=== PATIENT | female | born 1995 | race Caucasian/White ===

== ENCOUNTER 2020-04-17 10:24 | Outpatient (CLI) | payer OTHER, SELFPAY ==
--- NOTE | 2020-04-18 12:38 | WPDNEUROLOGY ---
Neurology EEG Report General Information Date of Study: 94 TEST EEG DIAGNOSIS tonic clonic seizures CONDITION OF RECORDING awake and drowsy EEG NUMBER [id number] CLINICAL HISTORY patient reported about 2 weeks ago she loss consciousness and was told she had a grand mal seizure no previous history of seizures but has lost consciousness a few times in the past EEG DESCRIPTION basic resting occipital frequency consist of moderate amount of well organized low to medium voltage 9 to 11 hertz per 2nd alpha admixed with low-voltage 15 to 18 hertz per 2nd beta activity. During drowsiness low-voltage beta activity is seen diffusely admixed with waxing and waning posterior alpha rhythm as well as 6 to 7 hertz per 2nd theta activity anteriorly. Non paroxysmal, nonfocal, nonlateralizing, IMPRESSION no significant abnormalities noted
== END 2020-04-17 10:25 | disposition home or self-care (01) ==
PROVIDERS: PCP Physician Assistant; Visit Provider Physician Assistant
DX: G40.309 Generalized idiopathic epilepsy and epileptic syndromes, not intractable, without status epilepticus (principal)
CPT/HCPCS: 95816

== ENCOUNTER 2020-06-13 14:19 | Emergency (ER) | payer OTHER, SELFPAY ==
[2020-06-13 14:24] VITALS: BP 118/67; PULSE 68; RESP 16; TEMP 36.3; O2SAT 100
--- NOTE | 2020-06-13 14:25 | ED.GENADULT ---
HPI - General Adult General Chief complaint: Ear Stated complaint: earache Time Seen by Provider: 06/13/20 14:25 Source: patient Mode of arrival: ambulatory Limitations: no limitations History of Present Illness HPI narrative: 25-year-old female patient presents to the [facility] with complaints of bilateral ear pain but more so to the right ear than the left. Patient states she has been dealing with this since beginning may. Patient states that the beginning of May she was given Augmentin but states that she felt like it never really truly cleared up and now has been giving her increasing pain for the past week. Patient denies any fevers, body aches or chills. Patient denies taking a daily antihistamine. Patient states that she has been dealing with frequent ear infections ever since she was when her eardrum busted. Patient states she is supposed to be getting a referral for an ENT doctor from her primary. Related Data Allergies Allergy/AdvReac Type Severity Reaction Status Date / Time sulfamethoxazole Allergy Severe Hives / Verified 06/13/20 14:24 Red Face trimethoprim Allergy Severe Hives / Verified 06/13/20 14:24 Red Face Review of Systems Review of Systems: Narrative: CONSTITUTIONAL: Denies fever, chills, or sweats. EYES: Denies visual changes, redness, or discharge. ENT: Denies rhinorrhea, congestion, sore throat, positive bilateral otalgia. CARDIOVASCULAR: Denies chest pain, palpitations, or edema. RESPIRATORY: Denies cough or dyspnea. GASTROINTESTINAL: Denies abdominal pain, nausea, vomiting, or diarrhea. GENITOURINARY: Denies dysuria or hematuria. SKIN: Denies rash or itching. MUSCULOSKELETAL: Denies back pain, joint pain, or myalgia. NEUROLOGIC: Denies headache, numbness, or weakness. PSYCHIATRIC: Denies anxiety or depression. [facility] Past Medical History Medical History (Updated 06/13/20 @ 14:37 by DAINA Shah) Anxiety Crohn's disease Depression Eardrum rupture, right Oligohydramnios Surgical History Surgical History (Updated 06/13/20 @ 14:27 by DAINA Shah) Delivery by section Hx of appendectomy Hx of cholecystectomy Hx of tonsillectomy Comments At the time of my signature I agree with nursing past medical history, surgical, social, and family history. There is no relevant family history pertinent to the presenting complaint. Exam Narrative: Exam Narrative: GENERAL: Well-appearing, well-nourished, and in no acute distress. HEAD: Normocephalic, atraumatic. EYES: PERRLA and EOMI. ENT: Nares clear, no rhinorrhea or epistaxis. Mucous membranes moist. Posterior pharynx no erythema, tonsil enlargement, exudates or lesions present. Bilateral TMs with erythema noted. NECK: Supple. No lymphadenopathy CHEST: Clear to auscultation. No respiratory distress. HEART: Regular rate and rhythm. No murmur heard. Normal peripheral pulses. ABDOMEN: Soft, nontender, nondistended, normal active bowel sounds. EXTREMITIES: Normal range of motion. No edema. SKIN: Warm, dry, no rash. NEURO: No focal deficits. Alert and oriented x3. Course Vital Signs Vital signs: Vital Signs Temperature 36.3 C L 06/13/20 14:24 Pulse Rate 68 06/13/20 14:24 Respiratory Rate 16 06/13/20 14:24 Blood Pressure 118/67 06/13/20 14:24 Pulse Oximetry 100 06/13/20 14:24 Temperature 36.3 C L 06/13/20 14:24 Pulse Rate 68 06/13/20 14:24 Respiratory Rate 16 06/13/20 14:24 Blood Pressure 118/67 06/13/20 14:24 Pulse Oximetry 100 06/13/20 14:24 Vital signs reviewed Medical Decision Making Differential Diagnosis Differential Diagnosis: Differential diagnosis: Otitis media, otitis externa, perforated TM, infection of the outer ear, foreign body or cerumen impaction, ruptured TM, acute mastoiditis, ligament otitis externa, dehydration, pneumonia, sepsis, dental or intraoral infection, TMJ dysfunction Discussed with patient that it does appear that she has
== END 2020-06-13 14:40 | disposition home or self-care (01) ==
PROVIDERS: Emergency Provider Nurse Practitioner Family; PCP Physician Assistant
DX: H66.93 Otitis media, unspecified, bilateral (principal); K50.90 Crohn's disease, unspecified, without complications
CPT/HCPCS: 99213; G0463

== ENCOUNTER 2022-02-12 10:42 | Outpatient (RCR) | payer OTHER, SELFPAY ==
[2022-02-12 12:09] LABS: Basophils Percent Auto 0.2 % (0.2-1.2); Eosinophils Absolute Auto 0.1 K/mm3 (0-0.3); Eosinophils Percent Auto 0.5 % (0-4.4); Hematocrit 28.2 % (37.0-47.0); Hemoglobin 8.8 g/dL (12.0-15.0); Immature Granulocyte Absolute 0.08 K/mm3 (0.00-0.031); Immature Granulocyte Percent A 0.7 % (0-0.5); Lymphocytes Absolute Auto 1.49 K/mm3 (0.9-3.2); Lymphocytes Percent Auto 13.5 % (18.3-44.2); Mean Corpuscular HGB Conc 31.2 g/dl (32-36); Mean Corpuscular Hemoglobin 23.8 pg (26-34); Mean Corpuscular Volume 76.2 fl (80-100); Monocytes Absolute Auto 0.6 K/mm3 (0.1-0.6); Monocytes Percent Auto 5.5 % (2.6-8.5); Neutrophils Absolute Auto 8.8 K/mm3 (1.3-6.7); Neutrophils Percent Auto 79.6 % (45.5-73.1); Platelet Count Result 268 k/mm3 (150-375); Red Cell Distribution Width 14.7 % (11.5-14.5)
[2022-02-12 12:25] LABS: Glucose 1 Hour PP 50gm Dose 123 mg/dL
[2022-02-12 13:07] LABS: HIV 1/2 Ab P24 Ag Result Negative (Negative)
[2022-02-14] MEDS: RHO(D) IMMUNE GLOBULIN 300 MCG/2 ML SYRINGE IM (12:33)
== END 2022-05-13 23:59 | disposition home or self-care (01) ==
LOC: ANHLAB 10:42
PROVIDERS: PCP Physician Assistant; Visit Provider Obstetrics & Gynecology
DX: Z11.4 Encounter for screening for human immunodeficiency virus [HIV] (principal); Z29.13 Encounter for prophylactic Rho(D) immune globulin; O36.0190 Maternal care for anti-D [Rh] antibodies, unspecified trimester, not applicable or unspecified; Z3A.00 Weeks of gestation of pregnancy not specified
CPT/HCPCS: 36415; 82947; 85025; 85461; 86703; 90384; 96372; G0432; J2790

== ENCOUNTER 2022-03-18 16:09 | Observation (INO) | payer OTHER, SELFPAY ==
[2022-03-18 16:30] VITALS: RESP 18; TEMP 37.3
--- NOTE | 2022-03-18 16:58 | PC.NURSE ---
Pt reports to Hospital complaining of low mid back pain that has come on gone since last evening. Pt reports the pain is intermittent but is not sure how far apart pain is coming and going.
[2022-03-18 17:03] VITALS: BMI 30.9
--- NOTE | 2022-03-18 17:04 | OBADM ---
This patient, Marixa Ruelas, admitted to the OB room Labor/Delivery/Recovery 120 for observation. Patient/family oriented to hospital policies and general routines including ID bracelet, bed and alarms, visiting hours, pain management, procedures, bathroom and other care routines, personal items, smoking policy, room service/diet, and visiting hours. Patient/Family are encouraged to report perceived risks to care and to ask questions if they do not understand what they are told or what they should do.
--- NOTE | 2022-03-18 17:13 | PC.NURSE ---
Pt reports hx of UTIS and yeast infections in this . Pt denies any urinary symptoms currently. Pt reports with her hx of UTIs she had no other urinary symptoms either.
[2022-03-18 17:15] VITALS: TEMP 37.1
[2022-03-18 17:34] LABS: Appearance Urine Slightly Cloudy (Clear); Bilirubin Urine 1+ (Negative); Blood Urine Negative (Negative); Color Urine Yellow (Yellow); Glucose Urine UA Negative (Negative); Ketones Urine 1+ mg/dL (Negative); Leukocyte Esterase Ur Negative LEU/UL (Negative); Nitrate Urine Negative (Negative); Protein Urine 1+ mg/dL (Negative); Specific Grav Ur >= 1.030 (1.001-1.035)
[2022-03-18 17:38] LABS: Amorphous Sediment Urine Few; Bacteria Urine Trace /hpf; Mucus Urine Heavy /lpf; RBC Urine 0-2 /hpf (0-2); Squamous Epithelial Cell Urine Few /hpf (Few); Transitional Epi Cells Urine Rare /hpf (None Seen)
[2022-03-18 17:50] LABS: Add Urine Microscopic? YES
--- NOTE | 2022-03-18 18:04 | PC.NURSE ---
Report called to Dr. Hastings. SVE, pt's complaints, u/a results given to Dr. Hastings. Dr. Hastings gave orders to discharge patient.
--- NOTE | 2022-03-22 07:50 | PM.OBTRLD ---
OB - Triage/Final Diagnosis Visit Information Reason for evaluation: threatened labor Comments/Additional reasons for admission: I have assessed the risk for this patient, Marixa Ruelas, and determined that she would benefit from observation care. Evaluation Laboratory results: Laboratory Tests 03/18/22 17:29 Urine Color Yellow Urine Appearance Slightly cloudy Urine pH 6.0 Ur Specific Alden >= 1.030 Urine Protein 1+ H Urine Glucose (UA) Negative Urine Ketones 1+ H Ur Blood (Man) Negative Urine Nitrate Negative Urine Bilirubin 1+ H Urine Urobilinogen 1.0 Leukocyte Esterase Rfl Negative Urine RBC 0-2 Urine WBC 4-6 H Ur Squamous Epith Cells Few Ur Transition Epith Cell Rare Amorphous Sediment Few H Urine Bacteria Trace Urine Mucus Heavy H
== END 2022-03-18 18:18 | disposition home or self-care (01) ==
PROVIDERS: Admitting Provider Obstetrics & Gynecology Gynecology; PCP Physician Assistant; Visit Provider Obstetrics & Gynecology Gynecology
DX: O47.03 False labor before 37 completed weeks of gestation, third trimester (principal); Z3A.34 34 weeks gestation of pregnancy
CPT/HCPCS: 81001; G0378; G0379

== ENCOUNTER 2022-04-13 15:08 | Outpatient (CLI) | payer OTHER, SELFPAY ==
[2022-04-13 15:47] LABS: Hematocrit 27.1 % (37.0-47.0); Hemoglobin 8.1 g/dL (12.0-15.0); Mean Corpuscular HGB Conc 29.9 g/dl (32-36); Mean Corpuscular Hemoglobin 21.3 pg (26-34); Mean Corpuscular Volume 71.3 fl (80-100); Mean Platelet Volume 9.6 fl (7.4-10.4); Platelet Count Result 273 k/mm3 (150-375); Red Cell Distribution Width 17.2 % (11.5-14.5)
[2022-04-14 07:56] LABS: Rapid Plasma Reagin Non-Reactive (NonReactive)
== END 2022-04-13 15:09 | disposition home or self-care (01) ==
PROVIDERS: PCP Physician Assistant; Visit Provider Obstetrics & Gynecology
DX: O34.219 Maternal care for unspecified type scar from previous cesarean delivery (principal); Z3A.39 39 weeks gestation of pregnancy
CPT/HCPCS: 36415; 85027; 86592; 86850; 86880; 86900; 86901; 86902

== ENCOUNTER 2022-04-14 09:59 | Inpatient (IN) | payer OTHER, SELFPAY ==
--- NOTE | 2022-03-16 14:45 | PC.NURSE ---
Verified with OR schedule and patient --C/S with tubal ligation on 04/14/22 at 1200 Patient given requisition for lab draw on 03/13/22
[2022-04-14] VITALS (58 sets, daily range): BP systolic 83–157; BP diastolic 39–144; PULSE 56–165; RESP 14–20; TEMP 36–36.7; O2SAT 88–100; BMI 29.9
--- NOTE | 2022-04-14 08:11 | PM.IMHP ---
H&P: HPI History of Present Illness Date/Time: 04/14/22 08:11 [id number] female at 39 weeks gestation presents . care records are on the chart and no significant abnormalities complications. Also desirous of tubal ligation which we have discussed regarding permanence, failure rate, increased risk of ectopic and regret. She states understanding and strongly desires permanent sterilization and declines nonpermanent methods. Chief Complaint: Review of Systems Review of Systems: All systems reviewed & are unremarkable except as noted in HPI and below PMFSH Past Medical History Medical History Anemia Anxiety Crohn's disease Depression Eardrum rupture, right Nexplanon insertion 09/02/15 Nexplanon removal 02/23/17 Oligohydramnios Seizures Suppression of menstruation Surgical History Surgical History Delivery by section (07/13/15) 07/13/15 arrest of dilation/polyhydramnios/ intolerance of labor Delivery by section (01/14/18) repeat c/s H/O colonoscopy (08/07/10) crohn's disease Hx of appendectomy 2001 Hx of cholecystectomy 2012 Hx of tonsillectomy 2009 Family History Family History Father Hypertension Coronary stent patent Social History Social History Smoking status: Never smoker Alcohol intake: never Substance use: current Substance use type: does not use Last use: last time december 2021 Additional living arrangements comments: spouse Gender identity (if verbalized by the patient): Female Sexual Orientation (if Verbalized by the Patient): Straight or Heterosexual Spiritual care concerns: No Meds Home Medications and Allergies Home Medications Medication Instructions Recorded Confirmed Type vitamins-iron fumarate 65 1 tablet PO DAILY 09/23/21 04/12/22 History mg iron-folic acid 1 mg tablet ferrous sulfate 325 mg (65 mg 325 mg PO DAILY 03/16/22 04/12/22 History iron) tablet (Iron (ferrous sulfate)) acetaminophen 500 mg tablet 500 mg PO Q6H PRN 04/05/22 04/12/22 History (Tylenol Extra Strength) clindamycin HCl 300 mg capsule 300 mg PO Q6H 10 days #40 caps 04/05/22 04/12/22 Rx Allergies Allergy/AdvReac Type Severity Reaction Status Date / Time sulfamethoxazole Allergy Severe Hives / Verified 04/12/22 15:07 Red Face trimethoprim Allergy Severe Hives / Verified 04/12/22 15:07 Red Face Exam Const: General: cooperative, healthy appearing and comfortable Resp: Effort & Inspection: normal respiratory effort Auscultation: clear to auscultation bilaterally Cardio: Rate: regular rate Rhythm: regular rhythm GI: Inspection: other (Enlarged uterus) Auscultation: normal bowel sounds : External Female Exam: normal external appearance Speculum Exam - Vagina: normal appearance of the vagina Speculum Exam - Cervix: normal appearance of the cervix Bimanual exam- vagina & uterus: enlarged (Fundal height 40cm heart tones 140) Assessment and Plan Assessment and plan (1) 39 weeks gestation of : Code(s): Z3A.39 - 39 weeks gestation of Status: Acute (2) Previous section: Code(s): Z98.891 - History of uterine scar from previous surgery Status: Acute (3) Encounter for female sterilization procedure: Code(s): Z30.2 - Encounter for sterilization Status: Acute Plan Proceed with repeat low-transverse section as well as tubal ligation.
--- NOTE | 2022-04-14 08:16 | WPDHPUPDATE1 ---
History and Physical Update Update Date/Time: 04/14/22 08:16 History and Physical has been reviewed, including an updated exam of the patient. There are NO changes in the patient's condition. Risks, benefits, and alternatives have been discussed and questions answered. Patient agrees to proceed with procedure.
--- NOTE | 2022-04-14 11:26 | LDADM ---
This patient, Marixa Ruelas, was admitted to Labor/Delivery/Recovery 119 on 04/14/22 at 09:59. Plans for , pain management and were discussed with patient. Patient/family oriented to hospital policies and general routines including ID bracelet, bed and alarms, visiting hours, pain management, procedures, bathroom and other care routines, personal items, smoking policy, room service/diet and guest tray routines, infant security routines, and visiting hours. Patient/Family are encouraged to report perceived risks to care and to ask questions if they do not understand what they are told or what they should do. See OBIX for further documentation.
--- NOTE | 2022-04-14 11:38 | WPDANESEPPF ---
Anes - Initial Pre Proc Eval Procedure: Operation Date: 04/14/22 12:00 Proposed Procedures p Repeat Section with Bilateral Tubal Ligation - Kareem Cedeno MD Date/Time: 04/14/22 11:38 Surgeon: Kareem Cedeno MD Pre Op Diagnosis: R C/S Patient Data Age: 27 Gender: F Height: 1.55 m Weight: 72 kg Last Vital Signs Pulse 82 04/14/22 10:46 BP 108/66 04/14/22 10:46 O2 Del Method Room Air 04/14/22 10:52 Allergies Allergy/AdvReac Type Severity Reaction Status Date / Time sulfamethoxazole Allergy Severe Hives / Verified 04/12/22 15:07 Red Face trimethoprim Allergy Severe Hives / Verified 04/12/22 15:07 Red Face Home Medications Medication Instructions Recorded Confirmed Type vitamins-iron fumarate 65 1 tablet PO DAILY 09/23/21 04/12/22 History mg iron-folic acid 1 mg tablet ferrous sulfate 325 mg (65 mg 325 mg PO DAILY 03/16/22 04/12/22 History iron) tablet (Iron (ferrous sulfate)) acetaminophen 500 mg tablet 500 mg PO Q6H PRN 04/05/22 04/12/22 History (Tylenol Extra Strength) clindamycin HCl 300 mg capsule 300 mg PO Q6H 10 days #40 caps 04/05/22 04/12/22 Rx Laboratory Tests 04/14/22 11:05 HIV 1&2 Ab/P24 Ag 4thGn Pending Patient hx anesthesia problems: none Family hx anesthesia problems: none Results Review: All pre-operative results and documents have been reviewed as part of the pre-operative evaluation. [facility] Past Medical History Medical History Anemia Anxiety Crohn's disease Depression Eardrum rupture, right Nexplanon insertion 09/02/15 Nexplanon removal 02/23/17 Oligohydramnios Seizures Suppression of menstruation Surgical History Surgical History Delivery by section (07/13/15) 07/13/15 arrest of dilation/polyhydramnios/ intolerance of labor Delivery by section (01/14/18) repeat c/s H/O colonoscopy (08/07/10) crohn's disease Hx of appendectomy 2001 Hx of cholecystectomy 2012 Hx of tonsillectomy 2009 Family History Family History Father Hypertension Coronary stent patent Social History Social History Smoking status: Never smoker Alcohol intake: never Substance use: current Substance use type: does not use Last use: last time december 2021 Additional living arrangements comments: spouse Gender identity (if verbalized by the patient): Female Sexual Orientation (if Verbalized by the Patient): Straight or Heterosexual Spiritual care concerns: No Anes - Eval Final PreProcedure Day of Procedure 04/14/22 11:38 Patient weight: overweight Heart: regular rate and rhythm Lungs: clear to auscultation Airway: Mallampati scale class II Neurological: alert and oriented Last oral intake: >/= 8 hours ASA classification: III Emergent: no Anesthetic plan: proceed Anesthesia type and monitoring: regional spinal and standard monitoring Results Review: All pre-operative results and documents have been reviewed as part of the pre-operative evaluation. Informed Consent: The patient's anesthetic plan and its attendant risks and benefits were discussed with the patient/family/POA. Questions were solicited and answers provided to the satisfaction of the patient/family/POA.
[2022-04-14 12:17] LABS: HIV 1/2 Ab P24 Ag Result Negative (Negative)
[2022-04-14] MEDS: ceFAZolin 2 GM/D5W 50 ML 2 GM/50 ML BAG IVPB (12:33)
--- NOTE | 2022-04-14 13:18 | PM.OBPRVD ---
OB - Delivery Note Procedure Procedure: Procedures Operation Date: 04/14/22 12:00 <No data on this case meets the specified criteria> Events: Previous Delivery Route of delivery: (With tubal ligation) Specimen: Yes (Fallopian tube time to) Quantitative Blood Loss (ml): 480 Anesthesia type: Spinal Disposition: PACU Complications: None Narrative: Patient prepped draped usual manner for this procedure. Pfannenstiel incision was made and carried down to the fascia which was then extended bilaterally the length of the skin incision. Superiorly and inferiorly dissected away from the rectus muscles and the peritoneum was readily entered. Bladder flap was developed in the uterus scored in low transverse manner. Vertex was delivered in the rest of baby was delivered without difficulty. Cord clamped and cut baby was passed off the operative field placenta removed manually and the uterus was exteriorized. The uterus was cleared of membranes and clots and the hysterotomy incision was closed using 0 Monocryl in a running interlocking manner with good approximation and hemostasis noted. Uterus attention then placed to the tubes which were doubly ligated and segment tube was removed. Uterus was turned to the abdomen gutters were cleared of serosanguineous fluid and clots and both tubal stumps were noted to be intact and hemostatic. All subfascial tissue was noted be hemostatic and the fascia was approximated using 0 Vicryl from the left angle midline and the right angle to the midline. Subcutaneous tissue was approximated using 0 plain suture and the skin was approximated using wide leonides. Patient was then sent to recovery room in stable condition. Baby Weeks of gestation at delivery: 39 Infant gender: Male Weight (pounds): 6 Weight (ounces): 15 presentation: vertex Placenta delivery description: Manual Removal Cord Vessel Description: 3 Vessels score one minute: 8 score five minutes: 9 AMG Delivery Billing Delivery Delivery: Delivery Charge
[2022-04-14] MEDS: MORPHINE SULFATE INJ (*CRX) 10 MG/ML AMP 3 MG IV PUSH ×3 (13:43→15:37)
[2022-04-14] MEDS: OXYTOCIN 30 UNITS/NS 500 ML 30 UNITS/500 ML BAG 125 UNITS IV CONT (14:18)
--- NOTE | 2022-04-14 15:47 | OBPPTRN ---
Patient transferred to post room # 288 via stretcher accompanied by fob and infant. PT transferred to bed via maxi air without difficulty. PT and fob both received instructions per one to one discussion, mom baby care guide and any demonstration during this shift. No barriers to learning at this time. Oriented to unit, room, information board, rooming in, admission packet and security measures. PT introductions made and plan of care discussed per post , pain management, breast pump and bottle feeding daily care activities. Patient verbalizes understanding.
[2022-04-14] MEDS: KETOROLAC 30 MG/ML VIAL (*BKC) IV PUSH (18:05)
[2022-04-14] MEDS: DOCUSATE SODIUM 100 MG CAPSULE PO (18:06)
[2022-04-14] MEDS: HYDROcodone/acetaminophen (*CRX) 5-325 MG TABLET 1 TAB PO (18:07)
[2022-04-14] MEDS: POLYSACCHARIDE IRON COMPLEX 150 MG CAPSULE PO (18:07)
[2022-04-14] MEDS: SIMETHICONE 80 MG TAB.CHEW PO (18:07)
[2022-04-14] MEDS: DEXTROSE 5%/0.45% SOD CHL 1,000 ML 125 ML IV CONT (18:10)
[2022-04-14] MEDS: CLINDAMYCIN HCL 150 MG CAP 300 MG PO (19:35)
[2022-04-14] MEDS: HYDROcodone/acetaminophen (*CRX) 10-325 MG TABLET 1 TAB PO (22:05)
[2022-04-15] MEDS: CLINDAMYCIN HCL 150 MG CAP 300 MG PO ×4 (01:30→19:23)
[2022-04-15 04:00] VITALS: BP 101/60; PULSE 75; RESP 16; TEMP 36.7; O2SAT 99
[2022-04-15] MEDS: IBUPROFEN 600 MG TABLET PO ×3 (04:59→16:42)
[2022-04-15] MEDS: SIMETHICONE 80 MG TAB.CHEW PO ×4 (04:59→16:42)
[2022-04-15] MEDS: HYDROcodone/acetaminophen (*CRX) 5-325 MG TABLET 1 TAB PO ×2 (04:59→16:43)
[2022-04-15 05:30] LABS: Basophils Percent Auto 0.1 % (0.2-1.2); Eosinophils Absolute Auto 0.1 K/mm3 (0-0.3); Eosinophils Percent Auto 0.6 % (0-4.4); Hematocrit 25.7 % (37.0-47.0); Hemoglobin 7.7 g/dL (12.0-15.0); Immature Granulocyte Absolute 0.09 K/mm3 (0.00-0.031); Immature Granulocyte Percent A 0.7 % (0-0.5); Lymphocytes Absolute Auto 1.33 K/mm3 (0.9-3.2); Mean Corpuscular Hemoglobin 21.1 pg (26-34); Mean Corpuscular Volume 70.4 fl (80-100); Mean Platelet Volume 9.7 fl (7.4-10.4); Monocytes Absolute Auto 0.8 K/mm3 (0.1-0.6); Monocytes Percent Auto 6.6 % (2.6-8.5); Neutrophils Absolute Auto 9.8 K/mm3 (1.3-6.7); Platelet Count Result 223 k/mm3 (150-375); Red Blood Count 3.65 M/mm3 (4.2-5.4); Red Cell Distribution Width 17.2 % (11.5-14.5); White Blood Count 12.1 K/mm3 (4.5-10.0)
[2022-04-15 05:53] LABS: Hypochromasia 1+ (NORMAL); Microcytosis 1+ (NORMAL); Platelet Estimate Adequate (Adequate)
--- NOTE | 2022-04-15 06:12 | P.PNOB_ITS ---
OB - PN: Subj Subjective Date/time seen: 04/15/22 06:12 Narrative: POD#1 Marixa reports doing well today. Her bleeding is light. Her pain is controlled. She is tolerating regular diet, passing gas, and ambulating without issues. Walden catheter was just removed; no spontaneous void. She denies any issues with her incision. She is breast feeding. She would like her son circumcised. OB - PN: Obj Data Labs CBC & Chem 7: 04/15/22 05:04 Labs: Laboratory Results - last 24 hr 04/14/22 04/15/22 11:05 05:04 WBC 12.1 H RBC 3.65 L Hgb 7.7 L Hct 25.7 L MCV 70.4 L MCH 21.1 L MCHC 30.0 L RDW 17.2 H Plt Count 223 MPV 9.7 Immature Gran % (Auto) 0.7 H Neut % (Auto) 81.0 H Lymph % (Auto) 11.0 L [place] % (Auto) 6.6 Eos % (Auto) 0.6 Baso % (Auto) 0.1 L Lymph # (Auto) 1.33 [place] # (Auto) 0.8 H Eos # (Auto) 0.1 Baso # (Auto) 0.0 Abs Immat Gran (auto) 0.09 H Absolute Neuts (auto) 9.8 H Absolute Nucleated RBC 0.0 Nucleated RBC % 0.0 Platelet Estimate Adequate Hypochromasia 1+ Microcytosis 1+ HIV 1&2 Ab/P24 Ag 4thGn Negative OB - PN A/P Assessment and Plan (1) S/P repeat low transverse : Code(s): Z98.891 - History of uterine scar from previous surgery Status: Acute (2) S/P tubal ligation: Code(s): Z98.51 - Tubal ligation status Status: Acute Plan day: 1 Plan: routine care Time Spent With Patient Time: Total time spent is greater than 50% in coordination of care (as documented) at patient's floor/unit and/or counseling patient: Review of Systems Constitutional: Constitutional: Denies chills, Denies fever(s) and Denies headache(s) Eyes: Eyes: Denies change in vision ENT: Denies dizziness and Denies headache(s) Cardiovascular: Cardiovascular: Denies chest pain, Denies palpitations and Denies dyspnea Respiratory: Respiratory: Denies cough and Denies dyspnea Gastrointestinal: Gastrointestinal: Denies nausea and Denies vomiting Genitourinary: Comments: normal bleeding Neurologic: Denies dizziness and Denies headache(s) Endocrine: Endocrine: Denies palpitations Exam Const: General: cooperative, comfortable and no acute distress Orientation/ consciousness: patient oriented x3 Resp: Effort & Inspection: normal respiratory effort Auscultation: clear to auscultation bilaterally Cardio: Rate: regular rate GI: Inspection: non-distended and incision (covered with clean dressing) GI Palp: Yes abdominal tenderness (appropriate) and Yes Soft to palpation Auscultation: normal bowel sounds : Other: fundus firm Skin: General skin exam: normal color Neuro: General: patient oriented x3 Extrem: General: normal to inspection Psych: Appearance: grossly normal Affect: normal affect Attitude: cooperative
[2022-04-15] MEDS: POLYSACCHARIDE IRON COMPLEX 150 MG CAPSULE PO ×2 (07:39→16:43)
[2022-04-15] MEDS: MULTIVIT/MIN/PREN/FOL AC/IRON TABLET 1 TAB PO (07:39)
[2022-04-15] MEDS: DOCUSATE SODIUM 100 MG CAPSULE PO ×2 (07:39→16:42)
[2022-04-15 08:15] VITALS: BP 100/56; PULSE 66; RESP 18; TEMP 36.3; O2SAT 100
[2022-04-15] MEDS: HYDROcodone/acetaminophen (*CRX) 10-325 MG TABLET 1 TAB PO ×3 (09:17→20:51)
--- NOTE | 2022-04-15 10:01 | PC.NURSE ---
[id number] Introductions were made, then consulted with patient to assess needs related to . Mother led the conversation with her?plans to feed?her infant and desires to pump for breastmilk. Resources provided for inpatient and outpatient services using a resource guide and mom/baby guide. Mother voiced understanding of information and will call if there is a request for assistance. Delegated pump set up to primary RN. [id number] - Mother states her pumping session went great, without pain, and her nurse assessed flange fit. Breast pump provided by primary RN due to maternal request. Instructions given on cleaning, care, usage, that there should be no pain, pumping schedule for milk production, collection, and storage of human milk. Reviewed to pump for comfort and nipple stretching/stimulation for adequate milk production every 3 hours (8 times in 24 hours) 1-2 times at night. Mother voiced understanding of the education shared along with mom and baby guide for additional resource information, and when to call for assistance if needed.
--- NOTE | 2022-04-15 11:08 | WPDANLDNPN2 ---
Anes-Prog Note L&D-Neuraxial Date/Time: 04/15/22 11:08 Neuraxial medications: intrathecal PF morphine Opiod-related complaints: none Patient feedback: Patient satisfied with post-operative pain management.
--- NOTE | 2022-04-15 11:08 | WPDANLDPN2 ---
Anes-Prog Note L&D Date/Time: 04/15/22 11:08 Comfortable throughout: section Neuraxial method: spinal Epidural/Spinal procedure site: clean & non-tender Neuro status: Neuro function grossly intact. Cardiovascular status: normal Respiratory status: normal Airway patency: baseline Mental status: baseline Post-Op hydration status: normal Vital Signs: Last Vital Signs Temp 36.3 C L 04/15/22 08:15 Pulse 66 04/15/22 08:15 Resp 18 04/15/22 08:15 BP 100/56 L 04/15/22 08:15 Pulse Ox 100 04/15/22 08:15 O2 Del Method Room Air 04/15/22 05:00 Pain score (VAS): 2 I/O: Intake & Output 04/14/22 04/15/22 04/15/22 23:59 07:59 15:59 Intake Total 500 2450 Output Total 2150 650 Balance -1650 1800 Patient feedback: Patient satisfied with anesthetic care.
[2022-04-15 12:07] VITALS: BP 106/63; PULSE 77; RESP 16; TEMP 36.2; O2SAT 100
[2022-04-15 19:30] VITALS: BP 108/67; PULSE 78; RESP 16; TEMP 36.4; O2SAT 100
[2022-04-16] MEDS: CLINDAMYCIN HCL 150 MG CAP 300 MG PO ×2 (01:32→07:43)
[2022-04-16] MEDS: HYDROcodone/acetaminophen (*CRX) 5-325 MG TABLET 1 TAB PO ×2 (01:36→07:41)
[2022-04-16] MEDS: IBUPROFEN 600 MG TABLET PO ×2 (01:36→07:42)
[2022-04-16] MEDS: SIMETHICONE 80 MG TAB.CHEW PO (07:41)
[2022-04-16] MEDS: DOCUSATE SODIUM 100 MG CAPSULE PO (07:43)
[2022-04-16] MEDS: MULTIVIT/MIN/PREN/FOL AC/IRON TABLET 1 TAB PO (07:43)
[2022-04-16] MEDS: POLYSACCHARIDE IRON COMPLEX 150 MG CAPSULE PO (07:43)
[2022-04-16 08:00] VITALS: BP 119/71; PULSE 65; PULSE 78; RESP 16; TEMP 36.7; O2SAT 100
--- NOTE | 2022-04-16 08:50 | PM.OBDSVD ---
DS: Admitting Diagnosis Discharge Date 04/16/22 Admitting Diagnosis repeat section undesired future fertility DS: Discharge Diagnosis Discharge Diagnosis (1) S/P tubal ligation: Code(s): Z98.51 - Tubal ligation status Status: Acute (2) S/P repeat low transverse : Code(s): Z98.891 - History of uterine scar from previous surgery Status: Acute OB - DS: Summary OB Procedures : Ultrasound OB Procedures Intrapartum: and Tubal ligation OB Procedures: : None Peripartum Data Delivery Method: Section Procedures: Procedures Operation Date: 04/14/22 12:00 Actual Procedure Side Surgeon p Section Kareem Cedeno MD complications: none [place] 1: Gender: Male Disposition of : home Status at Discharge Functional status at discharge: independent ambulation Overall status at discharge: patient is back to baseline Time Spent with Patient Time attestation: Total time spent providing and/or coordinating discharge services: Time spent: Less than 30 minutes Exam Const: General: cooperative, healthy appearing, comfortable and no acute distress Orientation/consciousness: patient oriented x3 Resp: Effort & Inspection: normal respiratory effort Auscultation: clear to auscultation bilaterally Cardio: Rate: regular rate GI: Inspection: non-distended and incision (covered with clean dressing) GI Palp: No abdominal tenderness and Yes Soft to palpation Auscultation: normal bowel sounds : Other: fundus firm Skin: General skin exam: normal color Neuro: General: patient oriented x3 Extrem: General: normal to inspection Psych: Appearance: grossly normal Affect: normal affect Attitude: cooperative DS: Data Data Completed and Pending Pending studies at discharge: Pending at discharge 04/14/22 13:02 Surgical [PTH] Routine Discharge Plan Discharge Attending physician on discharge: Amalia Mckeon Discharging Clinician: Amalia Mckeon Anticipated Discharge Date/Time: 04/16/22 11:00 Patient Disposition: Home, Self-Care Activity: may shower, may drive after 2 weeks and pelvic rest Diet: regular Discharge Instructions: No heavy lifting greater than 10 pounds for 6 weeks Patient Instructions: Antibiotic Form Stand Alone Forms: General Discharge Information Follow-up/Referrals: Kareem Cedeno MD [Physician] - 1 Week (for staple removal) Discharge Medications: New acetaminophen [Mapap (acetaminophen)] 325 mg Tablet 650 mg PO Q6H PRN (Reason: Mild Pain (1-3)) 10 Days Qty: 60 0RF hydrocodone-acetaminophen 5-325 mg Tablet 1 tablet PO Q3H PRN (Reason: Moderate Pain (4-6)) 3 Days Qty: 20 0RF docusate sodium 100 mg Capsule 100 mg PO BID Qty: 40 0RF ibuprofen 600 mg Tablet 600 mg PO Q6H PRN (Reason: Cramping) Qty: 40 0RF Continued clindamycin HCl 300 mg capsule 300 mg PO Q6H 10 Days Qty: 40 0RF vit-iron fum-folic ac 65 mg iron- 1 mg tablet 1 tablet PO DAILY ferrous sulfate [Iron (ferrous sulfate)] 325 mg (65 mg iron) Tablet 325 mg PO DAILY 90 Days Qty: 90 0RF Discontinued acetaminophen [Tylenol Extra Strength] 500 mg tablet 500 mg PO Q6H PRN Date of admission: 04/14/22 09:59 Primary Care Provider: Martha,Mike Damon Admitting Provider: Kareem Cedeno Attending physician on admission: Kareem Cedeno Condition: Stable
[2022-04-16] MEDS: HYDROcodone/acetaminophen (*CRX) 10-325 MG TABLET 1 TAB PO (12:53)
[2022-04-18 09:24] VITALS: BP 117/81; PULSE 78; RESP 18; TEMP 36.8; O2SAT 100
== END 2022-04-16 14:40 | disposition home or self-care (01) | DRG 540 ==
LOC: ANHLDR 10:05 → ANHOB2 04-15 06:17 → ANHLDR 04-19 10:44 → ANHOB2 04-19 10:44
PROVIDERS: Admitting Provider Obstetrics & Gynecology; PCP Physician Assistant; Visit Provider Obstetrics & Gynecology
PROC: 10D00Z1 Extraction of Products of Conception, Low, Open Approach (ICD-10-PCS; CPT 59514; principal; 2022-04-14 12:00)
DX: O34.219 Maternal care for unspecified type scar from previous cesarean delivery (principal); K50.90 Crohn's disease, unspecified, without complications; Z30.2 Encounter for sterilization; Z90.49 Acquired absence of other specified parts of digestive tract; O99.02 Anemia complicating childbirth; O99.62 Diseases of the digestive system complicating childbirth; Z3A.39 39 weeks gestation of pregnancy; Z37.0 Single live birth
CPT/HCPCS: 36415; 85025; 85027; 86592; 86703; 86850; 86880; 86900; 86901; 88302; A9270; G0432; J0131; J0690; J1200; J1885; J2270; J2274; J2405; J2590

== ENCOUNTER 2022-05-01 15:29 | Emergency (ER) | payer OTHER, SELFPAY ==
--- NOTE | 2022-05-01 15:34 | ED.DENTAL ---
HPI - Dental/Oral General Chief complaint: Dental/Oral Stated complaint: infected tooth Time Seen by Provider: 05/01/22 15:37 Source: patient, RN notes reviewed and old records reviewed Mode of arrival: ambulatory Limitations: no limitations History of Present Illness HPI Narrative: 27-year-old female presents to the [facility] with complaints of right lower dental pain and swelling. States is been going on for approximately 2 days. Has taken Tylenol with no relief. History of poor dentition. History of dental infections. Gave but is no longer breast-feeding her son. States she has had the infection in the same spot several times over the last year. MD Complaint: tooth pain Related Data Allergies Allergy/AdvReac Type Severity Reaction Status Date / Time sulfamethoxazole Allergy Severe Hives / Verified 05/01/22 15:37 Red Face trimethoprim Allergy Severe Hives / Verified 05/01/22 15:37 Red Face Review of Systems Review of Systems: All systems reviewed & are unremarkable except as noted in HPI and below Constitutional: Constitutional: Reports no additional constitutional complaints, Denies chills and Denies fever(s) Eyes: Eyes: Reports no additional eye complaints ENT: Reports as per HPI Comments: Dental pain right lower Cardiovascular: Cardiovascular: Reports no additional cardiovascular complaints, Denies chest pain and Denies dyspnea Respiratory: Respiratory: Reports no additional respiratory complaints, Denies cough and Denies dyspnea Musculoskeletal: Musculoskeletal: Reports no additional musculoskeletal complaints Integumentary/Breasts: Skin/Breast: Reports system reviewed and no additional complaints, except as docu Neurologic: Reports system reviewed and no additional complaints, except as documented Psychiatric: Psychiatric: Reports no additional psychiatric complaints Allergic/Immunologic: Allergic/Immunologic: Reports no additional allergic/immunologic complaints [facility] Past Medical History Medical History Anemia Anxiety Crohn's disease Depression Eardrum rupture, right Nexplanon insertion 09/02/15 Nexplanon removal 02/23/17 Oligohydramnios Seizures Suppression of menstruation Surgical History Surgical History Delivery by section (07/13/15) 07/13/15 arrest of dilation/polyhydramnios/ intolerance of labor Delivery by section (01/14/18) repeat c/s Delivery by section (04/14/22) rpt c/s with Tubal ligation H/O colonoscopy (08/07/10) crohn's disease Hx of appendectomy 2001 Hx of cholecystectomy 2012 Hx of tonsillectomy 2009 Family History Family History Father Hypertension Coronary stent patent Social History Social History Smoking status: Never smoker Alcohol intake: never Substance use: current Substance use type: does not use Last use: last time december 2021 Additional living arrangements comments: spouse Gender identity (if verbalized by the patient): Female Sexual Orientation (if Verbalized by the Patient): Straight or Heterosexual Spiritual care concerns: No Comments At the time of my signature, I reviewed and agree with the nursing past medical, surgical, social, and family history. There is no relevant family history pertinent to the patient complaint. Exam Const: General: healthy appearing, no acute distress and alert Nutritional Appearance: well nourished Orientation/consciousness: patient oriented x3 Limitations: no limitations HENMT: Head: normal to inspection Ears: external ears normal, TM's normal bilaterally and EAC's normal General nose exam: Normal external nose present and Normal nasal mucous membranes and turbinates present Face and sinus: normal facial exam M[place]
[2022-05-01 15:37] VITALS: BP 116/66; PULSE 92; RESP 16; TEMP 36.7; O2SAT 99
[2022-05-01 15:39] VITALS: BP 116/66; PULSE 92; RESP 16; TEMP 36.7; O2SAT 99
== END 2022-05-01 15:50 | disposition home or self-care (01) ==
PROVIDERS: Emergency Provider Nurse Practitioner; PCP Physician Assistant
DX: K04.7 Periapical abscess without sinus (principal); K50.90 Crohn's disease, unspecified, without complications
CPT/HCPCS: 99213; G0463

== ENCOUNTER 2022-09-14 14:58 | Emergency (ER) | payer OTHER, SELFPAY ==
[2022-09-14 15:18] VITALS: BP 109/65; PULSE 83; RESP 16; TEMP 36.9; O2SAT 100
--- NOTE | 2022-09-14 15:34 | ED.EAR ---
HPI - Ear Problem General Chief complaint: Ear Stated complaint: ear pain Time Seen by Provider: 09/14/22 15:30 Source: patient Mode of arrival: ambulatory Limitations: no limitations History of Present Illness HPI Narrative: Marixa is a 27-year-old female patient presenting to the clinic today with complaints of right ear pain and decreased hearing x2 days. She denies any runny nose, cough, fever, chills, or sore throat. Related Data Allergies Allergy/AdvReac Type Severity Reaction Status Date / Time sulfamethoxazole Allergy Severe Hives / Verified 09/14/22 15:02 Red Face trimethoprim Allergy Severe Hives / Verified 09/14/22 15:02 Red Face Review of Systems Review of Systems: Pertinent positives per HPI. Patient denies any fever, chills, rash, headache, visual changes, dizziness, cough, runny nose, sore throat, shortness of breath, chest pain, palpitations, nausea, vomiting, diarrhea, constipation, abdominal pain, or any urinary issues. PMFSH Past Medical History Medical History Anemia Anxiety Crohn's disease Depression Eardrum rupture, right Nexplanon insertion 09/02/15 Nexplanon removal 02/23/17 Oligohydramnios Seizures Suppression of menstruation Surgical History Surgical History Delivery by section (07/13/15) 07/13/15 arrest of dilation/polyhydramnios/ intolerance of labor Delivery by section (01/14/18) repeat c/s Delivery by section (04/14/22) rpt c/s with Tubal ligation H/O colonoscopy (08/07/10) crohn's disease Hx of appendectomy 2001 Hx of cholecystectomy 2012 Hx of tonsillectomy 2009 Family History Family History Father Hypertension Coronary stent patent Social History Social History Smoking status: Never smoker Alcohol intake: never Substance use: current Substance use type: does not use Last use: last time december 2021 Living arrangements: other Additional living arrangements comments: spouse Occupation/Education: 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 Gender identity (if verbalized by the patient): Female Sexual Orientation (if Verbalized by the Patient): Straight or Heterosexual Spiritual care concerns: No Comments At the time of my signature, I reviewed and agree with the nursing past medical, surgical, social, and family history. There is no relevant family history pertinent to the patient complaint. Exam Narrative: General: Well-developed, well nourished, in no apparent distress Head: Normocephalic, atraumatic Eyes: Pupils equally round and reactive to light bilaterally, EOM intact, sclera and conjunctive clear, no discharge, lids normal Ears: Left TMs intact and clear, right TM intact, bulging, red, ear canals clear, no drainage, grossly hearing normal. Nose: Nares patent, no discharge, no inflammation, no sinus tenderness. Mouth: Oropharynx without lesions or masses, good dentition, MMM. Neck: Supple, trachea midline, no enlargement of anterior or posterior cervical nodes, no thyroid masses or goiter palpable. Cardio: Regular rate and rhythm, s1 and s2 normal, no murmur appreciated. Resp: Clear to auscultation bilaterally anteriorly and posteriorly, no rhonchi, rales, wheezing or rubs Course Course Emergency Course: Portions of this record may have been created with voice recognition software. Level of Care: Express Care Visit Vital Signs Vital signs: Vital Signs Temperature 36.9 C 09/14/22 15:18 Pulse Rate 83 09/14/22 15:18 Respiratory Rate 16 09/14/22 15:18 Blood Pressure 109/65 09/14/22 15:18 Pulse Oximetry 100 09/14/22 15:18 Oxygen Delivery Room Air 09/14/22 15:18 Temperature 36.9 C
== END 2022-09-14 15:40 | disposition home or self-care (01) ==
PROVIDERS: Emergency Provider Nurse Practitioner Family; PCP Physician Assistant
DX: H66.91 Otitis media, unspecified, right ear (principal)
CPT/HCPCS: 99213; G0463

== ENCOUNTER 2022-11-09 15:59 | Outpatient (CLI) | payer OTHER, SELFPAY ==
[2022-11-09 16:10] LABS: Basophils Percent Auto 0.4 % (0.2-1.2); Eosinophils Absolute Auto 0.2 K/mm3 (0-0.3); Eosinophils Percent Auto 2.6 % (0-4.4); Hematocrit 37.2 % (37.0-47.0); Hemoglobin 11.6 g/dL (12.0-15.0); Immature Granulocyte Absolute 0.01 K/mm3 (0.00-0.031); Immature Granulocyte Percent A 0.1 % (0-0.5); Lymphocytes Absolute Auto 2.62 K/mm3 (0.9-3.2); Lymphocytes Percent Auto 37.2 % (18.3-44.2); Mean Corpuscular HGB Conc 31.2 g/dl (32-36); Mean Corpuscular Hemoglobin 23.9 pg (26-34); Mean Corpuscular Volume 76.7 fl (80-100); Mean Platelet Volume 9.9 fl (7.4-10.4); Monocytes Absolute Auto 0.8 K/mm3 (0.1-0.6); Monocytes Percent Auto 11.5 % (2.6-8.5); Neutrophils Absolute Auto 3.4 K/mm3 (1.3-6.7); Neutrophils Percent Auto 48.2 % (45.5-73.1); Platelet Count Result 424 k/mm3 (150-375); Red Blood Count 4.85 M/mm3 (4.2-5.4); Red Cell Distribution Width 15.5 % (11.5-14.5); White Blood Count 7.1 K/mm3 (4.5-10.0)
[2022-11-09 16:46] LABS: Iron 23 ug/dL (37-170)
[2022-11-09 16:54] LABS: Alanine Aminotransferase 26 U/L (6-35); Albumin Level 4.8 g/dL (3.5-5.1); Alkaline Phosphatase 95 U/L (38-126); Anion Gap 10 mmol/L (8-16); Aspartate Amino Transferase 25 U/L (14-36); Bilirubin,Total 1.5 mg/dL (0.2-1.3); Blood Urea Nitrogen 7 mg/dL (7-17); Carbon Dioxide 27 mmol/L (22-30); Chloride 103 mmol/L (98-107); Estimated Glomerular Filt Rate > 60; Glucose 81 mg/dL (65-110); Potassium 3.6 mmol/L (3.4-5.0); Sodium 140 mmol/L (137-145)
[2022-11-09 16:57] LABS: Percent Iron Saturation 5 % (20-50)
[2022-11-09 17:23] LABS: Ferritin 5.17 ng/mL (6.24-137)
[2022-11-09 18:02] LABS: Folic Acid 10.7 ng/mL (2.76->20)
== END 2022-11-09 16:00 | disposition home or self-care (01) ==
LOC: ANHLAB 16:00
PROVIDERS: PCP Physician Assistant; Visit Provider Internal Medicine Hematology & Oncology
DX: D64.9 Anemia, unspecified (principal)
CPT/HCPCS: 36415; 80053; 82607; 82728; 82746; 83540; 83550; 85025

== ENCOUNTER 2023-11-15 09:15 | Outpatient (CLI) | payer OTHER, SELFPAY | END 2023-11-15 09:16 | disposition home or self-care (01) | LOC: ANHAUDASC 09:16 | PROVIDERS: PCP Physician Assistant; Visit Provider Otolaryngology | DX: H93.239 Hyperacusis, unspecified ear (principal) | CPT/HCPCS: 92557; 92567 ==

== ENCOUNTER 2023-12-01 00:15 | Day surgery (SDC) | payer OTHER, SELFPAY ==
[2023-11-23 08:44] VITALS: BMI 29.1
--- NOTE | 2023-11-23 08:51 | PC.NURSE ---
Report to the Outpatient Waiting Room, entrance under the green pavilion located off [facility], at time _0745 on date _12/01/23_. Planned Procedure Time: _0945_. Time changes happen often and if your time is changed the preop area will call you the afternoon before. - You and your visitor will be asked to self-screen and do not enter if you have any COVID symptoms. - A mask is optional within the hospital at this time. Patients may have clear liquids (water, carbonated beverages, clear teas, apple juice) until 3 hours prior to surgery with a maximum of 20 ounces. - No food from midnight until time of surgery - Infants may have breast milk until 4 hours before surgery, formula 6 hours prior to surgery. - Children will be allowed to drink immediately following surgery. If applicable, please bring a bottle or sippy cup to assist with drinking. Juice, water, soda, and popsicles are readily available. For infants on formula, please bring formula the day of surgery. Pacifiers are allowed. Take the following medications with a SIP of water the morning of surgery: DO NOT STOP ANY OF YOUR OTHER PRESCRIPTION MEDICATIONS PRIOR TO SURGERY ?EXCEPT THE FOLLOWING Medications to discontinue per physician NONE Date to take last dose Please no make-up, nail georgian, hairspray, perfume, deodorant, or body powder the day of surgery. No jewelry (including any body piercings) or valuables the day of surgery, leave them at home. Please take a shower or bath the night before, or the morning of, surgery with an antibacterial soap. Wear comfortable, loose fitting clothing. Children are encouraged to wear pajamas. - Jewelry must be removed prior to entering the operating room. Rings and piercings that are not removed may be cut off. - The hospital will not accept responsibility for valuables. - Please leave all valuables, including medications, at home the day of surgery. If you are going home after surgery, a licensed motor pool driver must drive you home. - NO public transportation without another adult if you receive anesthesia. - We recommend that an adult stay with you for 24 hours following discharge. - We also recommend that you do not drive, make important decision, drink alcoholic beverages, or take any drugs that were not prescribed by your health care provider for at least 24 hours after your discharge time. For Pediatric surgeries, we recommend two adults accompany the child home. Follow any additional instructions given to you from your surgeon. If you or anyone in your household have experienced Covid symptoms in the past week, please notify your surgeon or the nurse liaison at the phone number below for possible testing. Telephone instructions given to _PATIENT___and asked if any additional questions and then verbalized understanding. Patient advised to call surgeon office or pre surgery nurse liaison [phone] if any additional questions.
--- NOTE | 2023-11-30 17:31 | P.HP_ITS ---
H&P: HPI History of Present Illness Date/Time: 11/30/23 17:31 Chief Complaint: recurrent on chronic otitis media Narrative: planned procedure Review of Systems 2 Review of Systems: All systems reviewed & are unremarkable except as noted in HPI and below PMFSH Past Medical History Medical History Anemia gets infusions Anxiety Crohn's disease Depression Eardrum rupture, right Nexplanon insertion 09/02/15 Nexplanon removal 02/23/17 Oligohydramnios Seizures Suppression of menstruation Surgical History Surgical History Delivery by section (07/13/15) 07/13/15 arrest of dilation/polyhydramnios/ intolerance of labor Delivery by section (01/14/18) repeat c/s Delivery by section (04/14/22) rpt c/s with Tubal ligation H/O colonoscopy (08/07/10) crohn's disease Hx of appendectomy 2001 Hx of cholecystectomy 2012 Hx of tonsillectomy 2010 Family History Family History Father Hypertension Coronary stent patent Social History Social History Smoking packs per day: 0.5 Smoking cigarettes per day: 10.0 Years smoked: 4 Smoking pack-years: 2.00 Smoking status: Never smoker Tobacco type: cigarettes and e-cigarettes/vaping Additional smoking assessment comments: VAPING FOR 4 YRS/ QUIT SMOKING 4 YRS AGO Alcohol intake: former Substance use: never Substance use type: marijuana Other substance usage details: couple times a month Living arrangements: with family Additional living arrangements comments: spouse Occupation/Education: 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 Gender identity (if verbalized by the patient): Female Sexual Orientation (if Verbalized by the Patient): Straight or Heterosexual Spiritual care concerns: No Meds Home Medications and Allergies Home Medications Medication Instructions Recorded Confirmed Type escitalopram oxalate 10 mg tablet 15 mg PO HS 11/23/23 11/23/23 History lamotrigine 100 mg tablet 100 mg PO DAILY 11/23/23 11/23/23 History ropinirole 1 mg tablet 1 mg PO HS 11/23/23 11/23/23 History Allergies Allergy/AdvReac Type Severity Reaction Status Date / Time sulfamethoxazole Allergy Severe Hives / Verified 11/23/23 08:42 Red Face trimethoprim Allergy Severe Hives / Verified 11/23/23 08:42 Red Face Exam Narrative: recurrent on chronic otitis media fluid in the ears Assessment and Plan Assessment and plan (1) Recurrent otitis media of both ears: Code(s): H66.93 - Otitis media, unspecified, bilateral Status: Acute Assessment and Plan: ?Plan OR bilateral myringotomy tube insertion will decide on tubes once I see the middle ears.? Risks discussed bleeding infection damage to surrounding structures cholesteatoma persistent perforation failure to resolve symptoms not 2 years patient nerve paralysis need for further tubes recurrent infections recurrent otorrhea.? Patient voiced understanding of these risks.
[2023-12-01] VITALS (7 sets, daily range): BP systolic 95–119; BP diastolic 60–74; PULSE 73–85; RESP 16–18; TEMP 36.7–37.2; O2SAT 98–100
--- NOTE | 2023-12-01 07:18 | WPDHPUPDATE1 ---
History and Physical Update Update Date/Time: 12/01/23 07:18 History and Physical has been reviewed, including an updated exam of the patient. There are NO changes in the patient's condition. Risks, benefits, and alternatives have been discussed and questions answered. Patient agrees to proceed with procedure.
[2023-12-01] MEDS: LACTATED RINGERS 1,000 ML 30 ML IV CONT (09:35)
--- NOTE | 2023-12-01 10:12 | WPDANESEPPF ---
Anes - Initial Pre Proc Eval Procedure: Operation Date: 12/01/23 10:45 Proposed Procedures p Bilateral Myringotomy, Insertion Of Tubes - Honorio Pablo MD Date/Time: 12/01/23 10:12 Surgeon: Honorio Pablo MD Pre Op Diagnosis: chronic otitis media Patient Data Age: 28 Gender: F Height: 1.55 m Weight: 71.2 kg Last Vital Signs Temp 98.9 F 12/01/23 09:54 Pulse 81 12/01/23 09:54 Resp 18 12/01/23 09:54 BP 104/66 12/01/23 09:54 Pulse Ox 100 12/01/23 09:54 O2 Del Method Room Air 12/01/23 09:54 Allergies Allergy/AdvReac Type Severity Reaction Status Date / Time sulfamethoxazole Allergy Severe Hives / Verified 12/01/23 09:34 Red Face trimethoprim Allergy Severe Hives / Verified 12/01/23 09:34 Red Face Home Medications Medication Instructions Recorded Confirmed Type escitalopram oxalate 10 mg tablet 15 mg PO HS 11/23/23 12/01/23 History lamotrigine 100 mg tablet 100 mg PO DAILY 11/23/23 12/01/23 History ropinirole 1 mg tablet 1 mg PO HS 11/23/23 12/01/23 History Patient hx anesthesia problems: none Family hx anesthesia problems: none Results Review: All pre-operative results and documents have been reviewed as part of the pre-operative evaluation. [facility] Past Medical History Medical History Anemia gets infusions Anxiety Crohn's disease Depression Eardrum rupture, right Nexplanon insertion 09/02/15 Nexplanon removal 02/23/17 Oligohydramnios Seizures Suppression of menstruation Surgical History Surgical History Delivery by section (07/13/15) 07/13/15 arrest of dilation/polyhydramnios/ intolerance of labor Delivery by section (01/14/18) repeat c/s Delivery by section (04/14/22) rpt c/s with Tubal ligation H/O colonoscopy (08/07/10) crohn's disease Hx of appendectomy 2001 Hx of cholecystectomy 2012 Hx of tonsillectomy 2009 Family History Family History Father Hypertension Coronary stent patent Social History Social History Smoking packs per day: 0.5 Smoking cigarettes per day: 10.0 Years smoked: 4 Smoking pack-years: 2.00 Smoking status: Never smoker Tobacco type: cigarettes and e-cigarettes/vaping Additional smoking assessment comments: VAPING FOR 4 YRS/ QUIT SMOKING 4 YRS AGO Alcohol intake: former Substance use: never Substance use type: marijuana Other substance usage details: couple times a month Living arrangements: with family Additional living arrangements comments: spouse Occupation/Education: 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 Gender identity (if verbalized by the patient): Female Sexual Orientation (if Verbalized by the Patient): Straight or Heterosexual Spiritual care concerns: No Anes - Eval Final PreProcedure Day of Procedure 12/01/23 10:12 Patient weight: obese Heart: regular rate and rhythm Lungs: clear to auscultation Airway: Mallampati scale class II Neurological: alert and oriented Last oral intake: >/= 8 hours ASA classification: III Emergent: no Anesthetic plan: proceed Anesthesia type and monitoring: general LMA and standard monitoring Results Review: All pre-operative results and documents have been reviewed as part of the pre-operative evaluation. Informed Consent: The patient's anesthetic plan and its attendant risks and benefits were discussed with the patient/family/POA. Questions were solicited and answers provided to the satisfaction of the patient/family/POA.
--- NOTE | 2023-12-01 10:54 | P.OP_ITS ---
Procedure Note - Detailed Date of Procedure 12/01/23 Pre-op Diagnosis chronic otitis media Post-op Diagnosis Same Procedure Performed bilateral myringotomy tube insertion Surgeon Honorio Pablo MD Anesthesia General Indications see above Findings aerated middle ears on today's exam Description of Procedure patient identified consent verified preop. Patient brought to the room. Time- out performed. General anesthesia induced LMA secure. Patient prepped draped position procedure firm 2nd time-out performed. A microscope brought in the field right-sided viewed myringotomy made aerated tube placed drops placed minimal bleeding exact same procedure the exact same findings performed on the left side. I performed all dictated portions procedure no complications patient taken to PACU after the care the patient given back to Anesthesiology. Drains No Packing No Pathology None sent Complications No immediate complications Condition Stable Disposition PACU [facility] Billing Surgery - Charge Forward: Surgery Billing
== END 2023-12-01 12:10 | disposition home or self-care (01) ==
PROVIDERS: PCP Physician Assistant; Visit Provider Otolaryngology
PROC: (CPT 69436; principal; 2023-12-01 10:45)
DX: H66.93 Otitis media, unspecified, bilateral (principal); G40.909 Epilepsy, unspecified, not intractable, without status epilepticus; F41.9 Anxiety disorder, unspecified; F32.A Depression, unspecified; F17.290 Nicotine dependence, other tobacco product, uncomplicated; F12.90 Cannabis use, unspecified, uncomplicated; E66.9 Obesity, unspecified; Z68.29 Body mass index [BMI] 29.0-29.9, adult
CPT/HCPCS: 69436; J1100; J2250; J2405; J2704; J3010; J7120

== ENCOUNTER 2024-09-15 10:39 | Emergency (ER) | payer OTHER, SELFPAY ==
[2024-09-15] VITALS (17 sets, daily range): BP systolic 116–133; BP diastolic 68–85; PULSE 84–108; RESP 15–23; TEMP 36.7; O2SAT 91–100
--- NOTE | ~2024-09-15 | CT_ITS ---
EXAMINATION: CTA BRAIN/CAROTID DATE: 09/15/2024 13:27 INDICATION: Facial and forearm numbness upon waking. TECHNIQUE: Computed tomographic angiography (CTA) of the head and neck was performed with 100 mL Omni paque-350 intravenous contrast. Multiplanar reconstructions and maximum intensity projection 3D-recon structions of the carotid arteries and of the intracranial arteries were created by the technologist on a separate workstation. Precontrast CT of the head was also obtained. Automated exposure control and iterative reconstruction technique were employed.The dose-length product was 1579.58 mGy-cm. COMPARISON: None. FINDINGS: Carotid arteries: Thoracic aorta is normal in caliber with no dissection. Normal anatomic variant retroesophageal aberr ant right subclavian artery. There is no evident atherosclerosis with 0% stenosis of the right caroti d bulb relative to normal distal artery lumen diameter (NASCET criteria). There is minimal calcified plaque with 0% stenosis of the left carotid bulb relative to normal distal artery lumen diameter. Mil d emphysema and diffuse groundglass opacity throughout the lungs likely related to atelectasis relate d to expiratory phase of imaging with a few small regions of subsegmental air trapping the dependent lungs consistent with small airway disease. Cervical soft tissues are unremarkable. Likely positional straightening of the normal cervical lordosis. Head: No acute intracranial hemorrhage, acute infarction or abnormal extra axial fluid collection. Ventricl es are normal and symmetric. No mass/mass effect. No abnormally enhancing brain lesions on the postco ntrast imaging. The orbits, paranasal sinuses and mastoid air cells are normal. Intracranial arteries Bilateral vertebral arteries are codominant but along the basilar artery relatively small. There is n o hemodynamically significant stenosis in the vertebral, basilar and internal carotid arteries. Verte bral arteries are codominant. There are no aneurysms identified. Both A1 and in the left P1 segments are patent. The right posterior cerebral circulation supplied from the right internal carotid artery via a patent right posterior communicating artery. There are also patent anterior to indicating and left posterior communicating arteries. Cerebral arterial arborization appears symmetric. IMPRESSION: 1. 0% stenosis of the right and left carotid bulbs relative to normal distal artery lumen diameter (N ASCET criteria). 2. Normal brain with no abnormally enhancing lesions or acute intracranial process. 3. Normal anatomic variation to the [place] as detailed above. No aneurysm, stenosis or thro mbosis. 4. 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 Reviewed, dictated and finalized at location A. [facility] IMPRESSION: 1. 0% stenosis of the right and left carotid bulbs relative to normal distal ar nahun lumen diameter (NASCET criteria). 2. Normal brain with no abnormally enhancing lesions or acute intracranial proc ess. 3. Normal anatomic variation to the [place] as detailed above. No aneu rysm, stenosis or thrombosis. 4. 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
--- NOTE | 2024-09-15 10:41 | ECG_ITS ---
Test Date: 2024-09-15 10:44:02 Measurements Intervals [place] Rate: 101 P: 62 GA: 142 QRS: 41 QRSD: 85 T: 29 QT: 329 QTc: 428 Interpretive Statements SINUS TACHYCARDIA BORDERLINE ECG No previous ECG available for comparison Electronically Signed On 09-15-2024 11:06:52 GAS JOCKEY by Santos Tellez D.O.
--- OUTSIDE RECORDS SUMMARY | 2024-09-15 10:41 | XMS_ITS | Data Portability ---
[facility] Organization [facility] Address [address] [place] [address] Care Team Providers Care Tone Regulator Name Role Phone DAVE THOMAS Primary Care Provider [phone] Assessment No assessment recorded. Plan of Treatment Reminders Order Date Submit Date Provider Last Modified By Organization Details Last Modified Time Details Appointments None recorded. Lab CBC 2024 025 [facility], [address] [facility] [address], [place], [address], 5 06:20:09 CMP, serum or plasma 2024 025 [facility], [address] [facility] [address], [place], [address], 5 06:20:07 lipid panel, serum 2024 025 [facility], [address] [facility] [address], [place], [address], 5 06:20:06 TSH + free T4, serum 2024 025 [facility], [address] [facility], [facility], [place], [address], 5 10:11:48 HbA1c (hemoglobi n A1c), blood 2024 025 [email or web address] In-Office Order, Internal Use Only DO Not Attach Compendium DO Not Attach Compendium, Do Not Delete/merge, [id number] 5 15:22:53 Referral physical therapist referral [email or web address] [facility], [address], [place], [address], 4 10:15:45 neurologis t referral 2023 024 KATIE Bass MD, [address] [facility] [address], [address], 4 18:11:12 Procedures None recorded. Surgeries None recorded. Imaging XR, hip, unilateral 2023 024 [facility], [address] [place] [address] , [place], [address], 4 12:14:13 electromyo gram + nerve conduction study 2023 024 [facility] (Imaging), [address] [place] [address] [address], [address], 4 12:27:27 Medication Orders cyclobenza mauri 10 mg tablet 2023 024 [facility] #[id number], [address], [place], [address], 4 16:34:48 ropinirole 2 mg tablet 2023 024 [facility] #[id number], [address], [place], [address], 4 17:16:22 ropinirole 4 mg tablet 2024 025 [facility] #[id number], [address], [place], [address], 5 14:56:43 Patient TargetsNo targets recorded. Patient Instructions Encounter Date Encounter Id Patient Instructions Last Modified By Organization Details Last Modified Time 12/06/2023 [id number] A healthy lifestyle: care instructions jnanney Not available 12/06/2023 16:38:54 carpal tunnel syndrome: care instructions jnanney Not available 12/06/2023 16:38:54 carpal tunnel syndrome: exercises jnanney Not available 12/06/2023 16:38:54 12/28/2023 [id number] Acute Sinusitis: Care Instructions jnanney Not available 12/28/2023 16:31:39 02/21/2024 [id number] A healthy lifestyle: care instructions jnanney Not available 02/21/2024 15:22:26 epilepsy: care instructions jnanney Not available 02/21/2024 15:22:26 05/10/2024 [id number] A healthy lifestyle: care instructions jnanney Not available 05/10/2024 17:16:20 09/09/2024 [id number] restless legs syndrome: care instructions jnanney Not available 09/09/2024 14:56:38 A healthy lifestyle: care instructions jnanney Not available 09/09/2024 14:53:05 iron deficiency anemia: care instructions jnanney Not available 09/09/2024 14:56:38 Reason for Referral Physical Therapist Referral for Pain in right hip joint Referring Physician: Dave Thomas [facility], Encounter Date: 12/28/2023 Neurologist Referral for Chr onic migraine without aura Referring Physician: Dave Thomas [facility], Encounter Date: 02/21/2024 Results Created Date Observation Date Name Description Value Unit Range Abnormal Flag Note LastModifiedBy Organization Detail LastModifiedTime 09/09/1909/09/2024 LIPID PANEL cholesterol, total 244 mg/dL 100-19 9 above high normal Not Available [facility] [address] [place], [address], 09/10/2024 06:20:06 09/09/1909/09/2024 LIPID PANEL triglyceride s 143 mg/dL 0-149 Not Available [facility] [address] [place], [address], 09/10/2024 06:20:06 09/09/1909/09/2024 LIPID PANEL HDL cholesterol 59 mg/dL 40-999 Not Available [address], [address], 09/10/2024 06:20:06 09/09/19 25 09/09/2024 LIPID PANEL VLDL cholesterol nadeen 29 mg/dL 5-40 Not Available [address], [address], 09/10/2024 06:20:06 09/09/19 25 09/09/2024 LIPID PANEL LDL chol calc ([facility]) 177 mg/dL 0-99 above high normal Not Available [address], [address], 09/10/2024 06:20:06 09/09/19 25 09/09/2024 COMP. METAB OLIC PANEL (14) glucose 77 mg/dL 70-99 Not Available [address], [address], 09/10/2024 06:20:07 09/09/19 25 09/09/2024 COMP. METAB OLIC PANEL (14) BUN 9 mg/dL 6-20 Not Available [address], [address], 09/10/2024 06:20:07 09/09/19 25 09/09/2024 COMP. METAB OLIC PANEL (14) creatinine 0.79 mg/dL 0.76-1 .27 Not Available [address], [address], 09/10/2024 06:20:07 09/09/19 25 09/09/2024 COMP. METAB OLIC PANEL (14) eGFR 103 >=60 Units for eGFR value s are mL/mi n/1.7 3 The eGFR Calcu latio n has not been valid ated for patie nts under the age of 18. If test resul ts are displ ayed for a patie nt under the age of 18, disre donavan that value . Not Available [address], [address], 09/10/2024 06:20:07 09/09/19 25 09/09/2024 COMP. METAB OLIC PANEL (14) BUN/creatini ne ratio 12 9-23 Not Available [address], [address], 09/10/2024 06:20:07 09/09/19 25 09/09/2024 COMP. METAB OLIC PANEL (14) sodium 138 mmol/ L 134-14 4 Not Available [address], [address], 09/10/2024 06:20:07 09/09/19 25 09/09/2024 COMP. METAB OLIC PANEL (14) potassium 4.0 mmol/ L 3.5-5. 2 Not Available [address], [address], 09/10/2024 06:20:07 09/09/19 25 09/09/2024 COMP. METAB OLIC PANEL (14) chloride 103 mmol/ L 96-106 Not Available [address], [address], 09/10/2024 06:20:07 09/09/19 25 09/09/2024 COMP. METAB OLIC PANEL (14) carbon dioxide, total 22 mmol/ L 20-29 Not Available [address], [address], 09/10/2024 06:20:07 09/09/19 25 09/09/2024 COMP. METAB OLIC PANEL (14) calcium 9.7 mg/dL 8.7-10 .2 Not Available [address], [address], 09/10/2024 06:20:07 09/09/19 25 09/09/2024 COMP. METAB OLIC PANEL (14) protein, total 7.6 g/dL 6.0-8. 5 Not Available [address], [address], 09/10/2024 06:20:07 09/09/19 25 09/09/2024 COMP. METAB OLIC PANEL (14) albumin 4.5 g/dL 4.0-5. 0 Not Available [address], [address], 09/10/2024 06:20:07 09/09/19 25 09/09/2024 COMP. METAB OLIC PANEL (14) globulin, total 3.1 g/dL 1.5-4. 5 Not Available [address], [address], 09/10/2024 06:20:07 09/09/19 25 09/09/2024 COMP. METAB OLIC PANEL (14) A/G ratio 1.0 1.2-2. 2 below low normal Not Available [address], [address], 09/10/2024 06:20:07 09/09/19 25 09/09/2024 COMP. METAB OLIC PANEL (14) bilirubin, total 1.2 mg/dL 0.0-1. 2 Not Available [address], [address], 09/10/2024 06:20:07 09/09/19 25 09/09/2024 COMP. METAB OLIC PANEL (14) alkaline phosphatase 127 IU/L 44-121 above high normal Not Available [address], [address], 09/10/2024 06:20:07 02/03/20 25 09/09/2024 COMP. METAB OLIC PANEL (14) AST (SGOT) 17 IU/L 0-40 Not Available [address], [address], 09/10/2024 06:20:07 09/09/19 25 09/09/2024 COMP. METAB OLIC PANEL (14) ALT (SGPT) 11 IU/L 0-32 Not Available [address], [address], 09/10/2024 06:20:07 09/09/1909/09/2024 CARDI OVASC ULAR REPOR T interpretati on Note Suppl maria ines storm repor t is avail able. Not Available [address], [address], 09/10/2024 06:20:08 09/09/19 25 09/09/2024 CARDI OVASC ULAR REPOR T pdf . Not Available [address], [address], 09/10/2024 06:20:08 09/09/19 25 09/09/2024 CBC, PLATE LET, NO DIFFE RENTI AL WBC 9.2 x10e3 /uL 3.4-10 .8 Not Available [address], [address], 09/10/2024 06:20:09 09/09/19 25 09/09/2024 CBC, PLATE LET, NO DIFFE RENTI AL RBC 5.04 x10e6 /uL 3.77-5 .28 Not Available [address], [address], 09/10/2024 06:20:09 09/09/19 25 09/09/2024 CBC, PLATE LET, NO DIFFE RENTI AL hemoglobin 10.8 g/dL 11.1-1 5.9 below low normal Not Available [address], [address], 09/10/2024 06:20:09 09/09/1909/09/2024 CBC, PLATE LET, NO DIFFE RENTI AL hematocrit 35.8 % 34.0-4 6.6 Not Available [address], [address], 09/10/2024 06:20:09 09/09/1909/09/2024 CBC, PLATE LET, NO DIFFE RENTI AL MCV 71 fL 79-97 below low normal Not Available [address], [address], 09/10/2024 06:20:09/09/1909/09/2024 CBC, PLATE LET, NO DIFFE RENTI AL MCH 21.4 pg 26.6-3 3.0 below low normal Not Available [address], [address], 09/10/2024 06:20:09/09/1909/09/2024 CBC, PLATE LET, NO DIFFE RENTI AL MCHC 30.2 g/dL 31.5-3 5.7 below low normal Not Available [address], [address], 09/10/2024 06:20:09 09/09/1909/09/2024 CBC, PLATE LET, NO DIFFE RENTI AL RDW 15.6 % 11.5-1 4.5 above high normal Not Available [address], [address], 09/10/2024 06:20:09 09/09/1909/09/2024 CBC, PLATE LET, NO DIFFE RENTI AL platelets 514 x10e3 /uL 150-45 0 above high normal Mean Plate let Volum e 9.8 fL 8.9-1 2.7 N Not Available [facility] [address] [place], [address], 09/10/2024 06:20:09 09/09/19 25 09/09/2024 CBC, PLATE LET, NO DIFFE RENTI AL NRBC 0 % 0-0 Not Available [facility] [address] [place], [address], 09/10/2024 06:20:09 09/09/19 25 09/10/2024 TSH+F REE T4 TSH 2.470 uIU/m L 0.450- 4.500 Not Available [facility] ([facility]) [address] [facility], [place], [address], 09/10/2024 10:11:48 09/09/19 25 09/10/2024 TSH+F REE T4 T4,free(dire ct) 1.05 NG/dL 0.82-1 .77 Not Available [facility] ([facility]) [address] [facility], [place], [address], 09/10/2024 10:11:48 09/09/19 25 09/09/2024 HbA1c (hemo globi n A1c), blood HbA1c 4.8 Not Available In-Office Order Internal Use Only DO Not Attach Compendium DO Not Attach Compendium, Do Not Delete/merge, [id number] 09/09/2024 15:18:21 12/07/19 24 12/07/2023 XR, hip, unila teral No observ ation record ed. [address] , [place], [address], 12/07/2023 16:41:44 02/12/20 24 02/12/2024 CT, head, w/o contr ast No observ ation record ed. [address], [address], 02/12/2024 14:16:17 Result Notes None recorded. Problems Name Problem SNOMED Code Status Onset Date Resolution Date Notes Provider Name and Address Organization Details Recorded Time Toothache 57861255 Active Angelika Murphy MA null, [place] - [place] 6 15:20:38 Anxiety 16732823 Active Angelika EdouardKEVAN moser null, [place] - [facility] 6 15:20:38 Chronic depression 707268037 Active Angelika BertKEVAN moser null, [place] - [place] 6 15:20:38 Spasm of back muscles 436690819 Active Dave Thomas PA-C Attn: Bonny kai,[address] [facility], [place], [address], [facility] - SI 15:35:37 Acute pelvic pain 467216031 Active Angelika Murphy [place] null, [place] - [place] 15:20:38 Notes:Chron'es disease Problem Notes None recorded. Procedures Surgical History Date Name Laterality Status Provider Name and Address Organization Details Recorded Time Appendectomy completed Jaycee Quispe MA [facility] 08/11/2014 16:07:09 Gastrointestinal Surgery completed Jaycee Quispe MA [facility] 08/11/2014 16:07:09 Tonsillectomy completed Jaycee Quispe MA [facility] 08/11/2014 16:07:09 Tubal Ligation completed Jaycee Engel MA [facility] 10/05/2022 15:16:06 Caesarean Section completed Jaycee Engel MA [facility] 10/05/2022 15:16:11 Imaging Results Imaging Date Name Status LastModified by Organiz ation Details LastModified Time 12/07/2023 XR, hip, unilateral completed [facility] [address] [place] [address] , [place], [address], 12/07/2023 16:41:44 02/12/2024 CT, head, w/o contrast completed [facility] [address] [place], [address], 02/12/2024 14:16:17 Procedure Notes None recorded. Medical Equipment None Reported. Allergies Allergen ID Allergen Name Allergen Category Reaction Reaction Severity Criticality Documentation Date Start Date Code Code System Note Provider Name and Address Organization Details Recorded Time 74210 Bactrim medicatio n Not available Not available Not available 08/11/2014 70056 9 RxNorm Not Available Not Available Not Available Medications Name Sig Start Date Stop Date Status Note LastModified by Organization Details LastModified Time cyclobenzap rine 10 mg tablet TAKE 1 TABLET BY MOUTH THREE TIMES A DAY NEEDED active Not Available Not Available No t Available amoxicillin 500 mg capsule 04/01 completed Not Available Not Available Not Available buspirone 5 mg tablet 08/27 completed Not Available Not Available Not Available acetaminoph en 325 mg tablet TAKE 2 TABLETS BY MOUTH EVERY 6 HOURS NEEDED FOR MILD PAIN FOR 10 DAYS 10/05 completed Not Available Not Available Not Available gabapentin 600 mg tablet Take 1 tablet 3 times a day by oral route for 30 days. 06/17 completed Not Available Not Available Not Available atorvastati n 20 mg tablet Take 1 tablet every day by oral route for 90 days. 2024 active Not Available Not Available Not Avai lable ropinirole 1 mg tablet TAKE 1 TABLET BY MOUTH EVERYDAY AT BEDTIME active Not Available Not Available No t Available clindamycin HCl 300 mg capsule TAKE 1 CAPSULE BY MOUTH ONCE EVERY 6 HOURS FOR 10 DAYS 10/05 completed Not Available Not Available Not Available trazodone 50 mg tablet 06/17 completed Not Available Not Available Not Available cetirizine 10 mg tablet TAKE 1 TABLET PO DAILY 02/02 completed Not Available Not Available Not Available miconazole nitrate 2 % topical cream 09/09 completed Not Available Not Available Not Available ibuprofen 800 mg tablet TAKE 1 TABLET BY MOUTH EVERY 8 HOURS WITH FOOD NEEDED FOR PAIN 08/27 completed Not Available Not Available Not Available Lidocaine Viscous 2 % mucosal solution TAKE 5ML BY MOUTH EVERY 6 HOURS NEEDED FOR 10 DAYS 10/05 completed Not Available Not Available Not Available fluconazole 150 mg tablet TAKE 1 TABLET BY MOUTH EVERY DAY 10/05 completed Not Available Not Available Not Available levetiracet am 500 mg tablet TAKE 1 TABLET BY MOUTH TWICE DAILY 01/21 /2022 completed Not Available Not Available Not Available hydrocodone 5 mg-acetamin ophen 325 mg tablet TAKE 1 TABLET BY MOUTH EVERY 3 HOURS NEEDED FOR MODERATE PAIN FOR 3 DAYS 10/05 completed Not Available Not Available Not Available meloxicam 15 mg tablet Take 1 tablet by oral route as needed for 90 days. 06/17 completed Not Available Not Available Not Available ondansetron HCl 4 mg tablet TAKE 1 TABLET BY MOUTH EVERY 8 HOURS 09/09 completed Not Available Not Available Not Available prednisone 20 mg tablet 06/17 completed Not Available Not Available Not Available penicillin V potassium 500 mg tablet TAKE 1 TABLET BY MOUTH EVERY 12 HOURS FOR 10 DAYS 10/05 completed Not Available Not Available Not Available acetaminoph en 300 mg-codeine 30 mg tablet 04/22 completed Not Available Not Available Not Available tramadol 50 mg tablet 06/17 completed Not Available Not Available Not Available lamotrigine 25 mg tablet TAKE 1 TABLET BY MOUTH ONCE DAILY X14 DAYS THEN INCREASE TO 2 TABLETS ONCE DAILY active Not Available Not Available No t Available oxycodone-a cetaminophe n 5 mg-325 mg tablet TAKE 1 TABLET BY MOUTH EVERY 4 HOURS 02/02 completed Not Available Not Available Not Available amoxicillin 875 mg tablet TAKE 1 TABLET BY MOUTH EVERY 12 HOURS X7 DAYS 10/05 completed Not Available Not Available Not Available citalopram 20 mg tablet TAKE 1 TABLET BY MOUTH EVERY DAY 02/02 completed Not Available Not Available Not Available meclizine 25 mg tablet TAKE 1 TABLET BY MOUTH EVERY 8 HOURS NEEDED 02/20 completed Not Available Not Available Not Available rizatriptan 10 mg disintegrat ing tablet TAKE 1 TAB BY MOUTH EVERY 2 HOURS NEEDED FOR MIGRAINE- REPEAT IN 2HOURS IF NEEDED-MA X 2TABS/24 HRS 09/09 completed Not Available Not Available Not Available doxycycline monohydrate 100 mg capsule 06/17 completed Not Available Not Available Not Available ropinirole 2 mg tablet TAKE 1 TABLET BY MOUTH EVERYDAY AT BEDTIME active Not Available Not Available No t Available cephalexin 500 mg capsule 04/22 completed Not Available Not Available Not Available ferrous sulfate 325 mg (65 mg iron) tablet TAKE 1 TABLET BY MOUTH DAILY 10/05 completed Not Available Not Available Not Available Cipro 500 mg tablet Take 1 tablet every 12 hours by oral route for 10 days. 04/17/ 2015 08/26 /2016 completed Not Available Not Available Not Available docusate sodium 100 mg capsule TAKE 1 CAPSULE BY MOUTH TWICE A DAY 10/05 completed Not Available Not Available Not Available gabapentin 300 mg capsule Take 1 capsule 3 times a day by oral route for 30 days. 06/17 completed Not Available Not Available Not Available diclofenac sodium 75 mg tablet,julia yed release Take 1 tablet twice a day by oral route for 30 days. 06/17 completed Not Available Not Available Not Available ibuprofen 600 mg tablet TAKE 1 TABLET BY MOUTH EVERY 6 HOURS NEEDED FOR CRAMPING 10/05 completed Not Available Not Available Not Available hydroxyzine HCl 10 mg tablet 08/27 completed Not Available Not Available Not Available cefdinir 300 mg capsule TK 1 C PO Q 12 H FOR 7 DAYS. 06/30 completed Not Available Not Available Not Available fluoxetine 20 mg capsule Take 1 capsule every day by oral route for 30 days. 04/01 completed Not Available Not Available Not Available clotrimazol e 1 % topical cream 06/17 completed Not Available Not Available Not Available lamotrigine 100 mg tablet TAKE 1 TABLET BY MOUTH EVERY DAY DIRECTED active Not Available Not Available No t Available naproxen 500 mg tablet TAKE 1 TABLET BY MOUTH TWICE A DAY 10/05 completed Not Available Not Available Not Available amoxicillin 875 mg-potassiu m clavulanate 125 mg tablet TAKE 1 TABLET BY MOUTH TWICE A DAY X7 DAYS 09/11 completed Not Available Not Available Not Available amoxicillin 500 mg-potassiu m clavulanate 125 mg tablet 06/17 completed Not Available Not Available Not Available ropinirole 4 mg tablet Take 1 tablet by oral route at bedtime for 30 days. 2024 active Not Available Not Available Not Avai lable hydroxyzine pamoate 25 mg capsule TAKE 1 CAPSULE BY MOUTH THREE TIMES A DAY NEEDED FOR 30 DAYS 12/05 completed Not Available Not Available Not Available escitalopra m 10 mg tablet TAKE 1 AND 1/2 TABLETS BY MOUTH AT BEDTIME FOR 90 DAYS active Not Available Not Available No t Available Strattera 40 mg capsule Take 1 capsule every day by oral route. 08/27 completed Not Available Not Available Not Available cyclobenzap rine 5 mg tablet 06/17 completed Not Available Not Available Not Available ciprofloxac in 0.3 %-dexametha sone 0.1 % ear drops,suspe nsion PLACE 5 DROPS INTO LEFT EAR EVERY 8 HOURS FOR 7 DAYS TRAGAL PUMP THEM IN AFTER APPLYING 05/10 completed Not Available Not Available Not Available escitalopra m 5 mg tablet 08/27 completed Not Available Not Available Not Available topiramate 50 mg tablet TAKE 1/2 TABLET BY MOUTH TWICE DAILY FOR ONE WEEK, THEN TAKE 1 TABLET BY MOUTH TWICE DAILY active Not Available Not Available No t Available nitrofurant oin monohydrate /macrocryst als 100 mg capsule TAKE 1 CAPSULE BY MOUTH EVERY 12 HOURS FOR 10 DAYS 10/05 completed Not Available Not Available Not Available quetiapine 50 mg tablet TAKE 1 TABLET BY MOUTH EVERY DAY AT BEDTIME 02/02 completed Not Available Not Available Not Available GaviLyte-G 236 gram-22.74 gram-6.74 gram-5.86 gram oral solution DIRECTED 02/28 completed Not Available Not Available Not Available Nexplanon 68 mg subdermal implant 06/17 completed Not Available Not Available Not Available 19 29 mg iron-1 mg chewable tablet 12/05 completed Not Available Not Available Not Available COVID-19 test specimen collection TEST DIRECTED 12/25 completed Not Available Not Available Not Available Vitals Date Recorded Body height Body mass index (BMI) Body weight Oxygen saturation Oxygen saturation in Arterial blood by Pulse oximetry Heart rate Systolic blood pressure Diastolic blood pressure Provider Name and Address Organization Details Last Updated DateTime 4 152.4 cm 30.3 kg/m2 89638.8 2 g 98 % 98 % 106 /min 118 mm[Hg] 86 mm[Hg] Liliane Jefferson MA [place] - [facility] 4 16:29:09 Date Recorded Body height Body mass index (BMI) Body weight Heart rate Oxygen saturation Oxygen saturation in Arterial blood by Pulse oximetry Systolic blood pressure Diastolic blood pressure Provider Name and Address Organization Details Last Updated DateTime 4 152.4 cm 32 kg/m2 81660.1 5 g 89 /min 100 % 100 % 112 mm[Hg] 80 mm[Hg] Liliane Jefferson MA [facility] 4 16:12:36 Date Recorded Body height Body mass index (BMI) Body weight Oxygen saturation Oxygen saturation in Arterial blood by Pulse oximetry Heart rate Systolic blood pressure Diastolic blood pressure Provider Name and Address Organization Details Last Updated DateTime 4 152.4 cm 31.7 kg/m2 83633.7 6 g 99 % 99 % 107 /min 124 mm[Hg] 80 mm[Hg] Liliane Jefferson MA [facility] 4 15:08:16 Date Recorded Body height Body mass index (BMI) Body weight Oxygen saturation Oxygen saturation in Arterial blood by Pulse oximetry Heart rate Systolic blood pressure Diastolic blood pressure Provider Name and Address Organization Details Last Updated DateTime 4 152.4 cm 32.2 kg/m2 37015.7 4 g 98 % 98 % 116 /min 125 mm[Hg] 83 mm[Hg] Shonda Zhou MA [facility] 4 17:00:49 Date Recorded Body height Body mass index (BMI) Body weight Oxygen saturation Oxygen saturation in Arterial blood by Pulse oximetry Heart rate Respiratory rate Systolic blood pressure Diastolic blood pressure Provider Name and Address Organization Details Last Updated DateTime 5 152.4 cm 34.4 kg/m2 90980.9 8 g 98 % 98 % 106 /min 16 /min 122 mm[Hg] 78 mm[Hg] Peyton Sierra MA [facility] 5 14:34:56 Social History Question Answer Notes LastModified by Organization Details LastModified Time Tobacco Smoking Status Former Smoker Vape KEVAN Wagoner, [facility] 02/15/2019 16:22:03 What Is Your Level Of Alcohol Consumption? None Information not available 02/15/2019 Are You Blind Or Do You Have Difficulty Seeing? No Information not available 02/02/2021 What Is Your Level Of Caffeine Consumption? Moderate Information not available 06/30/2020 How Much Tobacco Do You Chew? None Information not available 06/30/2020 In The 14 Days Before Symptom Onset, Have You Had Close Contact With A Laboratory-con firmed COVID-19 While That Case Was Ill? No Information not available 12/25/2020 In The 14 Days Before Symptom Onset, Have You Had Close Contact With A Person Who Is Under Investigation For COVID-19 While That Person Was Ill? No Information not available 12/25/2020 Have You Been To An Area Known To Be High Risk For COVID-19? No Information not available 12/25/2020 Are You Currently Employed? No Information not available 08/27/2021 Are You Deaf Or Do You Have Serious Difficulty Hearing? No Information not available 02/02/2021 What Type Of Diet Are You Following? REGULAR Information not available 02/15/2019 Which Illicit Or Recreational Drugs Have You Used? None Marijuana Information not available 06/30/2020 Do You Or Have You Ever Used E-cigarettes Or Vape? Current User Of Electronic Cigarettes Vape Information not available 06/30/2020 Are There Any Guns Present In Your Home? No Information not available 06/30/2020 Live Alone Or With Others? With Others Information not available 06/30/2020 What Was The Date Of Your Most Recent Tobacco Screening? 09/09/2024 Information not available 09/09/2024 Do You Have Any Pets? No Information not available 02/28/2023 What Is Your Relationship Status? Information not available 12/25/2020 Do You Use Your Seat Belt Or Car Seat Routinely? Yes Information not available 02/02/2021 Do You Have Smoke And Carbon Monoxide Detectors In Your Home? Yes Information not available 12/25/2020 Are You Passively Exposed To Smoke? Yes Information not available 02/02/2021 Do You Or Have You Ever Used Smokeless Tobacco? Never Used Smokeless Tobacco Information not available 06/30/2020 How Much Tobacco Do You Smoke? No Information not available 02/15/2019 General Stress Level Medium Information not available 06/30/2020 Do You Feel Stressed (tense, Restless, Nervous, Or Anxious, Or Unable To Sleep At Night)? [id number] Information not available 10/05/2022 Do You Use Any Illicit Or Recreational Drugs? Yes Marijuana Information not available 10/05/2022 Do You Use Sunscreen Routinely? No Information not available 02/28/2023 Has Tobacco Cessation Counseling Been Provided? No Information not available 02/15/2019 On What Date Was Tobacco Cessation Counseling Provided? 09/09/2024 Information not available 09/09/2024 What Type Of Noise Exposure Are You Exposed To? NoExposureToExcessive Noise Information not available 02/28/2023 Do You Or Have You Ever Used Any Other Forms Of Tobacco Or Nicotine? Yes Information not available 12/25/2020 Sex: Female Functional Status Question Answer Note LastModified by Organization D etails LastModified Time Are you able to care for yourself? Yes Information n ot available 06/30/2020 Mental Status None recorded. Family History Nothing Reported Notes:HX of Alcoholism, Asth ma, ADD/ADHD, Depression, HTN, Migraines, Crohns Medical History Condition Response Anxiety Disorder Y Muscle, Joint, or Bone Problems Y Depression Y Gynecological History Statement/Question Response Date of Last Pap Smear Current Control Method Tubal Ligat ion Date of LMP 08/13/2024 LMP Definite Obstetrics History GPAL:G 3 P 3 0 0 0 Type Value Full Term 3 Total 3 Immunizations Vaccine Type Date Status Note Provider Nam e and Address Organization Details Recorded Time Rho(D)-IG 01/15/2018 [place], [place] - [facility] 05/03/2023 09:52:16 Rho(D)-IG 07/14/2015 [place] [facility] 05/03/2023 09:52:16 Tdap 01/16/2018 [place] [facility] 05/03/2023 09:52:16 Tdap 07/15/2015 [place] [facility] 05/03/2023 09:52:16 Influenza, split virus, quadrivalent, PF 07/15/2015 [place] - [facility] 05/03/2023 09:52:16 Past Encounters Encounter ID Performer Location Encounter Start Date Encounter Closed Date Diagnosis/Indication Diagnosis SNOMED-CT Code Diagnosis ICD10 Code Diagnosis Note [id number] Jaycee Quispe MA [facility] [address] [place] [address] 08/11/2014 15:56:32 08/12/2014 16:32:53 Acute pelvic pain [id number] Shira Anders MA [facility] [address] [place] [address] 11/21/2014 14:51:29 11/21/2014 15:21:47 Toothache [id number] Anxiety 46104963 [id number] Dave Thomas PA-C [facility] [address] [place] [address] 10/26/2015 15:28:37 10/26/2015 16:22:05 Chronic depression 406435364 F34.1 [id number] Dave Thomas PA-C [facility] [address] [place] [address] 04/01/2016 15:12:44 04/01/2016 16:30:49 Spasm of back muscles 608123903 M62.912 [id number] Dave Thomas PA-C [facility] [address] [place] [address] 07/29/2016 16:27:52 07/29/2016 17:05:03 Dental abscess 111424050 K04.7 Migraine 11773806 G43.90 9 [id number] Dave Thomas PA-C [facility] [address] [place] [address] 02/15/2019 16:05:28 02/15/2019 17:20:04 Low back pain 258534399 M54.5 Backache w ith radiating pain 175632462 M54.02 Chronic depression 10249 0009 F34.1 Spasm of back muscles 20 8650691 M62.830 Anxiety 74751596 F41.1 Carpal mich elle syndrome 76298306 G56.01 [id number] [facility] [address] [place] [address] 03/22/2019 15:09:54 03/24/2019 22:10:28 [id number] Jessica Llanos MA [facility] [address] [place] [address] 03/22/2019 15:45:48 03/22/2019 16:43:30 Spasm of back muscles 735883987 M62.088 [id number] Morenita Kurtz [facility] [address] [place] [address] 04/22/2019 15:08:16 04/22/2019 16:33:31 Lumbar radiculopathy 942807963 M54.16 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 781050904 M99.59 [id number] Dave Thomas PA-C [facility] [address] [place] [address] 06/17/2019 14:20:17 06/17/2019 16:07:03 Muscle spasm of thoracic back 3698699142 46773 M62.840 [id number] Dave Thomas PA-C [facility] [address] [place] [address] 04/01/2020 15:53:55 04/06/2020 08:36:48 Tonic-clonic seizure 23846534 G40.590 [id number] Dave Thomas PA-C [facility] [address] [place] [address] 06/30/2020 13:58:48 06/30/2020 15:49:39 Chronic depression 905425324 F34.1 Recurrent acute otitis media of bilateral ears 1919438133 505917 H65.23 Bipolar I disorder 68396 6008 F31.0 Anxiety 84760640 F41.1 [id number] Dave Thomas PA-C [facility] [address] [place] [address] 12/25/2020 13:57:25 12/25/2020 15:09:03 Anxiety 00243142 F41.1 Dissociati ve convulsions 742625960 F44.5 [id number] Dave Thomas PA-C [facility] [address] [place] [address] 02/02/2021 17:00:20 02/02/2021 17:27:35 Chronic depression 753576062 F34.1 Anxiety 11550395 F41.1 Spasm of back muscles 20 7252987 M62.830 Dissociati ve convulsions 583747432 F44.5 [id number] Dave Thomas PA-C [facility] [address] [place] [address] 08/27/2021 11:32:48 08/27/2021 12:21:44 Restless legs 23095282 G25.81 Iron defic iency anemia 16436172 D50.8 Overweight 844385490 E66 .3 [id number] Dave Thomas PA-C [facility] [address] [place] [address] 10/05/2022 14:59:50 10/05/2022 15:58:51 Mixed anxiety and depressive disorder 592695626 F41.8 Recurrent acute serous otitis media of right middle ear 8257156111 195632 H65.04 Overweight 166215370 E66 .3 Iron defic iency anemia 32117355 D50.8 [id number] Dave Thomas PA-C [facility] [address] [place] [address] 10/10/2022 15:47:44 10/18/2022 09:02:59 Crohn's disease 09981063 K50.00 Iron defic iency anemia 65592184 D50.8 Mixed anxi ety and depressive disorder 717221935 F41.8 Overweight 129544829 E66 .3 [id number] Dave Mancini MD [facility] (Adult Med) [address] [place] [address] 02/28/2023 14:33:00 03/01/2023 10:07:27 Otitis externa 4276590 H60.93 mild inflammati on now but i suspect she has been having ext otitis rather than otitis media Keep ears dry and follow up if it gets reinfected [id number] Dave Thomas PA-C [facility] [address] [place] [address] 09/11/2023 15:38:15 09/12/2023 15:22:14 Restless legs 00228998 G25.81 Pain in ri ght hip joint 1152346708 17306 M25.551 Recurrent acute serous otitis media of right middle ear 9463054181 816233 H65.04 Overweight 087720656 E66 .3 [id number] Dave Thomas PA-C [facility] [address] [place] [address] 12/06/2023 16:20:19 12/07/2023 12:59:53 Pain in right hip joint 8859638584 79947 M25.551 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 0672000693 00193 G56.01 Overweight 712754932 E66 .3 [id number] Dave Thomas PA-C [facility] [address] [place] [address] 12/28/2023 16:03:06 12/29/2023 15:47:24 Acute maxillary sinusitis 93436618 J01.01 Pain in ri ght hip joint 6777259048 46673 M25.551 Restless legs 34543748 G 25.81 [id number] Dave Thomas PA-C [facility] [address] [place] [address] 02/21/2024 15:02:41 02/22/2024 14:36:03 Chronic migraine without aura 8582076901 54274 G43.709 Seizure disorder 8738185 02 G40.009 Overweight 334855413 E66 .3 [id number] Dave Thomas PA-C [facility] [address] [place] [address] 05/10/2024 16:44:02 05/16/2024 12:25:03 Restless legs 55554413 G25.81 Overweight 095739164 E66 .3 [id number] Shonda Zhou MA [facility] [address] [place] [address] 09/09/2024 14:21:54 09/12/2024 16:25:09 Bipolar I disorder 899131283 F31.0 Unintentio nal weight gain 4129510317 02627 R63.5 Overweight 469343955 E66 .3 Restless legs 80010699 G 25.81 Iron defic iency anemia 77855060 D50.8 Health Concerns Section Related Observation LastModified by Organization Detai ls LastModified Time None Recorded Concern Status LastModified by Organization Details LastModified Time None Recorded Advance Directives Directive None Recorded Payers Encounter Date Sequence Insurance Name Policy Number Policy Ross Covered Member ID Ross Member ID Guarantor Name 12/06/2023 1 [facility] ON OR AFTER 02/04/21 (MEDICAID REPLACEMENT - HMO) Maribell Suraj [id number] Maribell Suraj 12/28/2023 1 [facility] ON OR AFTER 02/04/21 (MEDICAID REPLACEMENT - HMO) Maribell Suraj [id number] Maribell Suraj 02/21/2024 1 [facility] ON OR AFTER 21 (MEDICAID REPLACEMENT - HMO) Maribell Suraj [id number] Maribell Suraj 05/10/2024 1 [facility] ON OR AFTER 02/04/21 (MEDICAID REPLACEMENT - HMO) Maribell Suraj [id number] Maribell Suraj 09/09/2024 1 [facility] ON OR AFTER 02/04/21 (MEDICAID REPLACEMENT - HMO) Maribell Suraj [id number] Maribell Suraj Notes Date Note Type Note Provider Name and Address Organization Details Recorded Time 12/06/2023 text/html has numbness in rt hand and wrist and wants an xray in rt hip due to pain... Dave Thomas PA-C Attn: [address] [place], [address], [facility] 12/06/2023 16:41:46 12/28/2023 text/html headaches have returned...wants bloodwork...behin d eyes and maxillary...new headaches feel different than old headaches...ent diagnosed her with tmj... Dave Thomas PA-C Attn: [address] [place], [address], [facility] 12/28/2023 16:34:53 02/21/2024 text/html wants a neuro...has ongoing and worsening headaches and some sort of de realization ...hx of seizure disorder.. Daev Thomas PA-C Attn: [address] [place], [address], [facility] [place] 02/21/2024 15:23:42 05/10/2024 text/html wants ropinirole increased...other mathias all is well Dave Thomas PA-C Attn: [address] , [place], [address], [facility] 05/10/2024 17:16:49 09/09/2024 text/html back on a mood stabilizer but has gained weight now... her psyche says its not the meds..also cant sleep now for a month...needs labs... Shonda Zhou MA [facility] [place] [facility] 09/09/2024 15:18:51 OBGyn Episode Ob Episode Information Episode Created Date Number of Fetuses Patient Bloodtype Patient rh Status Prepregnancy Weight lbs Domestic Partner Domestic Partner Phone Father Name Adult Neurologist Status 02/21/20 24 1 CLOSED Fetus Data First Name Last Name Admitted to NICU Weight (g) Sex Living Outcome Pediatric Complications Fetus ID Race Codes Race Delivery Type Full Term [id number] Duke Calculation Initial Duke Date Initial Exam Date Initial Exam Provider Initial Ultrasound Date Last Menstrual Period Date Ultra Sound Weeks Gestation 0 Eighteen To Twenty Week Duke Update Ultra Sound Date Fundal Height At Umbil Quickening Date Ultra Sound Latest Weeks Gestation Final Duke Confirmed By Final Duke Confirmed Date Final Duke Date Ultra Sound Latest Days Gestation 0 0 Menstrual History Last Menstrual Date Menses Monthly On Bcp Conception Prior Menses Frequency Hcg Plus Date Menarche Onset Age Delivery Information Delivery Date Delivery Type Labor Anesthesia Weeks Gestation Incision Type Labor Labor Length Hrs Delivered By Post Complications Tubal Sterilization Discharge Date Comments 8 Discharge Information Feeding Method Contraceptive Method Maternal HG B and HCT Levels Ob Episode Information Episode Created Date Number of Fetuses Patient Bloodtype Patient rh Status Prepregnancy Weight lbs Domestic Partner Domestic Partner Phone Father Name Adult Neurologist Status 02/21/20 24 1 CLOSED Fetus Data First Name Last Name Admitted to NICU Weight (g) Sex Living Outcome Pediatric Complications Fetus ID Race Codes Race Delivery Type Full Term [id number] Duke Calculation Initial Duke Date Initial Exam Date Initial Exam Provider Initial Ultrasound Date Last Menstrual Period Date Ultra Sound Weeks Gestation 0 Eighteen To Twenty Week Duke Update Ultra Sound Date Fundal Height At Umbil Quickening Date Ultra Sound Latest Weeks Gestation Final Duke Confirmed By Final Duke Confirmed Date Final Duke Date Ultra Sound Latest Days Gestation 0 0 Menstrual History Last Menstrual Date Menses Monthly On Bcp Conception Prior Menses Frequency Hcg Plus Date Menarche Onset Age Delivery Information Delivery Date Delivery Type Labor Anesthesia Weeks Gestation Incision Type Labor Labor Length Hrs Delivered By Post Complications Tubal Sterilization Discharge Date Comments 5 Discharge Information Feeding Method Contraceptive Method Maternal HG B and HCT Levels Ob Episode Information Episode Created Date Number of Fetuses Patient Bloodtype Patient rh Status Prepregnancy Weight lbs Domestic Partner Domestic Partner Phone Father Name Adult Neurologist Status 02/21/20 24 1 CLOSED Fetus Data First Name Last Name Admitted to NICU Weight (g) Sex Living Outcome Pediatric Complications Fetus ID Race Codes Race Delivery Type Full Term [id number] Duke Calculation Initial Duke Date Initial Exam Date Initial Exam Provider Initial Ultrasound Date Last Menstrual Period Date Ultra Sound Weeks Gestation 0 Eighteen To Twenty Week Duke Update Ultra Sound Date Fundal Height At Umbil Quickening Date Ultra Sound Latest Weeks Gestation Final Duke Confirmed By Final Duke Confirmed Date Final Duke Date Ultra Sound Latest Days Gestation 0 0 Menstrual History Last Menstrual Date Menses Monthly On Bcp Conception Prior Menses Frequency Hcg Plus Date Menarche Onset Age Delivery Information Delivery Date Delivery Type Labor Anesthesia Weeks Gestation Incision Type Labor Labor Length Hrs Delivered By Post Complications Tubal Sterilization Discharge Date Comments 2 Discharge Information Feeding Method Contraceptive Method Maternal HG B and HCT Levels
--- NOTE | 2024-09-15 12:17 | ED.GENADULT ---
HPI - General Adult General Chief complaint: Neuro Symptoms/Deficit Stated complaint: facial swelling, tingling arms Time Seen by Provider: 09/15/24 11:27 History of Present Illness HPI narrative: 29-year-old female presented to the emergency department for evaluation for left-sided facial swelling and decreased sensation. Patient states she also had decreased sensation of her bilateral forearms. Patient reports that the tingling to the bilateral forearms has since improved. States she felt that her face was swollen but denies any facial droop. Patient denies any prior history of CVA. Patient does have a history of seizure secondary to Xanax withdrawal and 2020. Patient states she was recently diagnosed with high cholesterol and was started on cholesterol medication. Related Data Home Medications ?Medication ?Instructions ?Recorded ?Confirmed ?Last Taken ?Type escitalopram oxalate 10 mg tablet 15 mg PO HS 11/23/23 09/02/24 Unknown History lamotrigine 100 mg tablet 100 mg PO DAILY 11/23/23 09/02/24 Unknown History ropinirole 1 mg tablet 1 mg PO HS 11/23/23 09/02/24 Unknown History Allergies Allergy/AdvReac Type Severity Reaction Status Date / Time sulfamethoxazole Allergy Severe Hives / Verified 09/15/24 10:40 Red Face trimethoprim Allergy Severe Hives / Verified 09/15/24 10:40 Red Face Review of Systems Review of Systems: All systems reviewed & are unremarkable except as noted in HPI and below PMFSH Past Medical History Medical History Purulent drainage of both ears through ear tube Suppression of menstruation Anemia gets infusions Seizures Nexplanon removal 02/23/17 Nexplanon insertion 09/02/15 Eardrum rupture, right Oligohydramnios Anxiety Depression Crohn's disease Surgical History Surgical History Delivery by section (04/14/22) rpt c/s with Tubal ligation H/O colonoscopy (08/07/10) crohn's disease Delivery by section (01/14/18) repeat c/s Delivery by section (07/13/15) 07/13/15 arrest of dilation/polyhydramnios/ intolerance of labor Hx of cholecystectomy 2012 Hx of appendectomy 2002 Hx of tonsillectomy 2009 Family History Family History Father Hypertension Coronary stent patent Social History Social History (Updated 09/02/24 @ 14:02 by Jessenia Caro) Social History: Caffeine- soda Smoking packs per day: 0.5 Smoking cigarettes per day: 10.0 Years smoked: 4 Smoking pack-years: 2.00 Smoking status: Never smoker Tobacco type: cigarettes and e-cigarettes/vaping Second hand tobacco smoke exposure: No Additional smoking assessment comments: VAPING FOR 4 YRS/ QUIT SMOKING 4 YRS AGO Alcohol intake: former Substance use: current Substance use type: marijuana Other substance usage details: couple times a month Do You Feel Safe in your Home?: Yes Lack of Transportation: No Lack of Food: Never True Current Housing: I Have Housing Concerned About Future Housing: No Difficulty Paying Gas/Electric Bills: No Difficulty Paying for Meds: No Currently Unemployed: No Education: High School Diploma/GED Difficulty w/ Childcare or Family Care: No Living arrangements: with family Additional living arrangements comments: spouse Occupation/Education: 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 Gender identity (if verbalized by the patient): Female Sexual Orientation (if Verbalized by the Patient): Straight or Heterosexual Spiritual care concerns: No Exam Narrative: APPEARANCE: Well appearing, no pain, no distress, well-nourished. HEAD: normocephalic, atraumatic. Mouth: Patient does have poor dentition and does have a fractured tooth and does often bite her left lateral tongue, site appears scarred but no active infection EYES: PERRLA/EOMI, conjunctivae clear. NOSE: Normal no drainage EARS:TMS clear with good light reflex. THROAT: Pharynx clear, no exudate. NECK: Supple. No adenopathy, no masses. RESPIRATORY: Airway patent, respirations nonlabored. Clear to auscultation bilaterally, no rales, rhonchi, wheezing. CARDIOVASCULAR: Regular rate and rhythm without murmurs rubs or gallops. ABDOMINAL: Soft, nontender, nondistended, normal bowel sounds MUSCULOSKELETAL: Moves all extremities. Strength/ROM intact, No edema, No calf tenderness. NEURO: Alert. Cranial nerves II through XII intact. No facial droop, intact sensation both sides of face, intact sensation both arms, normal comprehensive neuro exam. NIH of 0 SKIN: Warm, dry. Normal Color Course Vital Signs Vital signs: Vital Signs Temperature 98.1 F 09/15/24 10:47 Pulse Rate 108 H 09/15/24 10:47 Respiratory Rate 18 09/15/24 10:47 Blood Pressure 133/85 09/15/24 10:47 Pulse Oximetry 100 09/15/24 10:47 Oxygen Delivery Room Air 09/15/24 10:47 Temperature 98.1 F 09/15/24 10:47 Pulse Rate 94 09/15/24 14:00 Respiratory Rate 15 09/15/24 14:00 Blood Pressure 122/68 09/15/24 13:30 Pulse Oximetry 100 09/15/24 14:30 Oxygen Delivery Room Air 09/15/24 10:47 Medical Decision Making MDM Narrative Medical decision making narrative: 29-year-old female presenting to the emergency department for evaluation for resolved less facial swelling forearm tingling. Patient had a and a score of 0. Low concern for TA. Patient is currently afebrile with no leukocytosis hemoglobin of 10.5, patient does have a known history of anemia. INR is 1.1. No significant acute abnormalities on the patient's CMP urine was negative. CTA was ordered and was negative. On re-evaluation patient states that symptoms have resolved. Patient continues to denies any dental pain. Patient was encouraged close follow-up with her primary care physician. All questions concerns were addressed. Differential Diagnosis Differential Diagnosis: Dental abscess, dental infection, TIA, CVA, Howell's palsy, sinus infection Vital Signs Vital Signs: Vital Signs Temperature 98.1 F 09/15/24 10:47 Pulse Rate 108 H 09/15/24 10:47 Respiratory Rate 18 09/15/24 10:47 Blood Pressure 133/85 09/15/24 10:47 Pulse Oximetry 100 09/15/24 10:47 Oxygen Delivery Room Air 09/15/24 10:47 Temperature 98.1 F 09/15/24 10:47 Pulse Rate 94 09/15/24 14:00 Respiratory Rate 15 09/15/24 14:00 Blood Pressure 122/68 09/15/24 13:30 Pulse Oximetry 100 09/15/24 14:30 Oxygen Delivery Room Air 09/15/24 10:47 Lab Data Lab results reviewed: Yes I reviewed the patient's lab results. 09/15/24 13:03 09/15/24 13:03 Labs: Lab Results 09/15/24 09/15/24 09/15/24 Range/Units 13:03 13:05 13:10 WBC 5.9 (4.5-10.0) K/mm3 RBC 4.85 (4.2-5.4) M/mm3 Hgb 10.5 L (12.0-15.0) g/dL Hct 34.4 L (37.0-47.0) % MCV 70.9 L (80-100) fl MCH 21.6 L (26-34) pg MCHC 30.5 L (32-36) g/dl RDW 15.9 H (11.5-14.5) % Plt Count 412 H (150-375) k/mm3 MPV 9.7 (7.4-10.4) fl Immature Gran % (Auto) 0.2 (0-0.5) % Neut % (Auto) 53.3 (45.5-73.1) % Lymph % (Auto) 32.4 (18.3-44.2) % Kleberg % (Auto) 10.2 H (2.6-8.5) % Eos % (Auto) 3.4 (0-4.4) % Baso % (Auto) 0.5 (0.2-1.2) % Lymph # (Auto) 1.91 (0.9-3.2) K/mm3 Kleberg # (Auto) 0.6 (0.1-0.6) K/mm3 Eos # (Auto) 0.2 (0-0.3) K/mm3 Baso # (Auto) 0.0 (0.0-0.1) K/mm3 Abs Immat Gran (auto) 0.01 (0.00-0.031) K/mm3 Absolute Neuts (auto) 3.2 (1.3-6.7) K/mm3 Absolute Nucleated RBC 0.000 (0.0-0.012) K/mm3 Nucleated RBC % 0.0 (0.0-0.2) % Platelet Estimate Increased (Adequate) Hypochromasia 1+ Anisocytosis 1+ Schistocytes None seen PT 14.4 (11.1-14.7) Seconds INR 1.1 APTT 25.8 (22.3-36.8) Seconds Sodium 139 (137-145) mmol/L Potassium 3.7 (3.4-5.0) mmol/L Chloride 108 H (98-107) mmol/L Carbon Dioxide 19 L (22-30) mmol/L Anion Gap 12 (4-12) mmol/L BUN 10 (7-17) mg/dL Creatinine 0.79 (0.7-1.0) mg/dL Estim Creat Clear Calc 85 ml/min Estimated GFR > 60 (59 - ) Glucose 82 (65-110) mg/dL POC Capillary Glucose 90 (65-105) mg/dl Calcium 8.9 (8.4-10.2) mg/dL Total Bilirubin 0.8 (0.2-1.3) mg/dL AST 21 (14-36) U/L ALT 17 (6-35) U/L Alkaline Phosphatase 91 (38-126) U/L Total Protein 8.0 (6.3-8.2) g/dL Albumin 4.3 (3.5-5.1) g/dL POC Urine HCG, Qual Negative (Negative) Imaging Data Radiologist's impression: Impressions Head/Neck CTA 09/15/24 13:36 IMPRESSION: 1. 0% stenosis of the right and left carotid bulbs relative to normal distal artery lumen diameter (NASCET criteria). 2. Normal brain with no abnormally enhancing lesions or acute intracranial process. 3. Normal anatomic variation to the black[place] of [place] as detailed above. No aneurysm, stenosis or thrombosis. 4. 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 Discharge Plan Discharge Clinical Impression: Swelling of left side of face, Paresthesia and pain of both upper extremities Patient Disposition: Home, Self-Care Condition: Stable Instructions: Antibiotic Form, Paresthesia (ED) Additional Instructions: Have close follow-up with primary care physician. If you have any worsening symptoms then please call or return to the emergency department. Patient Language: Bangladeshi Prescriptions: No Action ropinirole 1 mg tablet 1 mg PO HS lamotrigine 100 mg tablet 100 mg PO DAILY escitalopram oxalate 10 mg tablet 15 mg PO HS Follow-up/Referrals: Martha,BAYRON Serrano [Primary Care Provider] -
--- NOTE | 2024-09-15 13:11 | PC.NURSE ---
Pt was a difficult stick, poor visibility of vasculature. Multiple unsuccessful attempts, required US IV placement. IV completed, labs sent. Pt updated. CT called for imaging. Call light in reach.
[2024-09-15 13:12] LABS: Basophils Percent Auto 0.5 % (0.2-1.2); Eosinophils Absolute Auto 0.2 K/mm3 (0-0.3); Eosinophils Percent Auto 3.4 % (0-4.4); Hematocrit 34.4 % (37.0-47.0); Hemoglobin 10.5 g/dL (12.0-15.0); Immature Granulocyte Absolute 0.01 K/mm3 (0.00-0.031); Immature Granulocyte Percent A 0.2 % (0-0.5); Lymphocytes Absolute Auto 1.91 K/mm3 (0.9-3.2); Lymphocytes Percent Auto 32.4 % (18.3-44.2); Mean Corpuscular HGB Conc 30.5 g/dl (32-36); Mean Corpuscular Hemoglobin 21.6 pg (26-34); Mean Corpuscular Volume 70.9 fl (80-100); Mean Platelet Volume 9.7 fl (7.4-10.4); Monocytes Absolute Auto 0.6 K/mm3 (0.1-0.6); Monocytes Percent Auto 10.2 % (2.6-8.5); Neutrophils Absolute Auto 3.2 K/mm3 (1.3-6.7); Neutrophils Percent Auto 53.3 % (45.5-73.1); Platelet Count Result 412 k/mm3 (150-375); Red Blood Count 4.85 M/mm3 (4.2-5.4); Red Cell Distribution Width 15.9 % (11.5-14.5); White Blood Count 5.9 K/mm3 (4.5-10.0)
[2024-09-15 13:12] LABS: BEDSIDEPREGUCG Negative (Negative)
[2024-09-15 13:21] LABS: Alanine Aminotransferase 17 U/L (6-35); Albumin Level 4.3 g/dL (3.5-5.1); Alkaline Phosphatase 91 U/L (38-126); Anion Gap 12 mmol/L (4-12); Aspartate Amino Transferase 21 U/L (14-36); Bilirubin,Total 0.8 mg/dL (0.2-1.3); Blood Urea Nitrogen 10 mg/dL (7-17); Calcium 8.9 mg/dL (8.4-10.2); Carbon Dioxide 19 mmol/L (22-30); Chloride 108 mmol/L (98-107); Estimated CRCL calculation 85 ml/min; Estimated Glomerular Filt Rate > 60; Glucose 82 mg/dL (65-110); Potassium 3.7 mmol/L (3.4-5.0); Sodium 139 mmol/L (137-145)
[2024-09-15 13:31] LABS: INR 1.1; Prothrombin Time 14.4 Seconds (11.1-14.7)
[2024-09-15 13:32] LABS: Partial Thromboplastin Time 25.8 Seconds (22.3-36.8)
[2024-09-15 13:34] LABS: Platelet Estimate Increased (Adequate)
[2024-09-15 13:35] LABS: Anisocytosis 1+; Hypochromasia 1+; Schistocytes None Seen
[2024-09-15 14:55] LABS: Glucose Point of Care 90 mg/dl (65-105)
== END 2024-09-15 14:43 | disposition home or self-care (01) ==
PROVIDERS: Emergency Provider Emergency Medicine; PCP Physician Assistant
DX: R22.0 Localized swelling, mass and lump, head (principal); R20.2 Paresthesia of skin; E78.00 Pure hypercholesterolemia, unspecified; K50.90 Crohn's disease, unspecified, without complications; D64.9 Anemia, unspecified; F32.A Depression, unspecified; F41.9 Anxiety disorder, unspecified; F17.290 Nicotine dependence, other tobacco product, uncomplicated; Z90.49 Acquired absence of other specified parts of digestive tract; Z79.899 Other long term (current) drug therapy; R00.0 Tachycardia, unspecified
CPT/HCPCS: 36415; 70496; 70498; 80053; 81025; 82948; 85025; 85610; 85730; 93005; 99284; Q9967

== ENCOUNTER 2025-03-15 08:59 | Emergency (ER) | payer OTHER, SELFPAY ==
[2025-03-15 09:16] VITALS: BP 132/92; PULSE 105; RESP 16; TEMP 36.7; O2SAT 100
--- NOTE | 2025-03-15 10:22 | ED.EAR ---
HPI - Ear Problem General Chief complaint: Ear Stated complaint: left ear pain Time Seen by Provider: 03/15/25 09:50 Source: patient and RN notes reviewed Mode of arrival: ambulatory Limitations: no limitations History of Present Illness HPI Narrative: 30-year-old female presents to the [facility] complaining of left ear pain for approximately 1 week. Patient did a tele visit a week ago and was told she has an ear infection was started on cefdinir. Patient states the pain is gotten worse and she continues to have drainage of her left ear. She does have an ear tube placed in her left ear. Patient denies any fevers, cough, upper respiratory symptoms, any other symptoms. Related Data Home Medications ?Medication ?Instructions ?Recorded ?Confirmed ?Last Taken ?Type escitalopram oxalate 10 mg tablet 15 mg PO HS 11/23/23 09/02/24 Unknown History lamotrigine 100 mg tablet 100 mg PO DAILY 11/23/23 09/02/24 Unknown History ropinirole 1 mg tablet 1 mg PO HS 11/23/23 09/02/24 Unknown History Allergies Allergy/AdvReac Type Severity Reaction Status Date / Time sulfamethoxazole Allergy Severe Hives / Verified 03/15/25 09:19 Red Face trimethoprim Allergy Severe Hives / Verified 03/15/25 09:19 Red Face Review of Systems Review of Systems: CONSTITUTIONAL: Denies fever, chills, or sweats. EYES: Denies visual changes, redness, or discharge. ENT: Denies rhinorrhea, congestion, sore throat. Positive for otalgia. CARDIOVASCULAR: Denies chest pain, palpitations, dizziness, lightheadedness or edema. RESPIRATORY: Denies cough or dyspnea. GASTROINTESTINAL: Denies abdominal pain, nausea, vomiting, or diarrhea. GENITOURINARY: Denies dysuria or hematuria. SKIN: Denies rash or itching. MUSCULOSKELETAL: Denies back pain, joint pain, or myalgia. NEUROLOGIC: Denies headache, numbness, or weakness. PSYCHIATRIC: Denies anxiety or depression. All other systems reviewed are negative, except as documented in HPI. [facility] Past Medical History Medical History Purulent drainage of both ears through ear tube Suppression of menstruation Anemia gets infusions Seizures Nexplanon removal 02/23/17 Nexplanon insertion 09/02/15 Eardrum rupture, right Oligohydramnios Anxiety Depression Crohn's disease Surgical History Surgical History Delivery by section (04/14/22) rpt c/s with Tubal ligation H/O colonoscopy (08/07/10) crohn's disease Delivery by section (01/14/18) repeat c/s Delivery by section (07/13/15) 07/13/15 arrest of dilation/polyhydramnios/ intolerance of labor Hx of cholecystectomy 2012 Hx of appendectomy 2002 Hx of tonsillectomy 2009 Family History Family History Father Hypertension Coronary stent patent Social History Social History Social History: Caffeine- soda Smoking packs per day: 0.5 Smoking cigarettes per day: 10.0 Years smoked: 4 Smoking pack-years: 2.00 Smoking status: Never smoker Tobacco type: cigarettes and e-cigarettes/vaping Second hand tobacco smoke exposure: No Additional smoking assessment comments: VAPING FOR 4 YRS/ QUIT SMOKING 4 YRS AGO Alcohol intake: former Substance use: current Substance use type: marijuana Other substance usage details: couple times a month Do You Feel Safe in your Home?: Yes Lack of Transportation: No Lack of Food: Never True Current Housing: I Have Housing Concerned About Future Housing: No Difficulty Paying Gas/Electric Bills: No Difficulty Paying for Meds: No Currently Unemployed: No Education: High School Diploma/GED Difficulty w/ Childcare or Family Care: No Living arrangements: with family Additional living arrangements comments: spouse Occupation/Education: 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 Gender identity (if verbalized by the patient): Female Sexual Orientation (if Verbalized by the Patient): Straight or Heterosexual Spiritual care concerns: No Comments At the time of my signature, I reviewed and agree with the nursing past medical, surgical, social, and family history. There is no relevant family history pertinent to the patient complaint. Exam Narrative: GENERAL: This is a well-nourished, well-developed adult, in no apparent distress. They are non ill-appearing, nontoxic appearing. HEAD: normocephalic, atraumatic. EYES: Sclera clear/white. Conjunctiva normal. Vision is grossly intact. Extraocular movements intact EARS: External ears normal, right auditory canals clear and without drainage, right TM normal without perforation. Left tragal tenderness. Left auditory canal erythematous and macerated with exudate present. Left TM with ear tube in place, no erythema or swelling. Hearing grossly intact. NOSE: External nose normal with no obvious nasal discharge, nasal turbinates without redness, no rhinorrhea. THROAT: Mucous membranes moist, posterior pharynx clear, without erythema or swelling. Uvula midline. NECK: Neck supple, non-tender without lymphadenopathy, masses or thyromegaly. CARDIOVASCULAR: Regular rate and rhythm without murmurs, gallops, or rubs. RESPIRATORY: Clear to auscultation. Breath sounds equal bilaterally. No wheezes, rales, or rhonchi. SKIN: warm, Dry, intact with no suspicious lesions or rash, good texture and turgor. NEURO: awake, alert, and oriented to person, place and time. There were no obvious focal neurologic abnormalities. EXTREMITIES: No joint tenderness, effusion, or edema noted. Course Course Emergency Course: Portions of this record may have been created with voice recognition software Level of Care: Express Care Visit Vital Signs Vital signs: Vital Signs Temperature 98.1 F 03/15/25 09:16 Pulse Rate 105 H 03/15/25 09:16 Respiratory Rate 16 03/15/25 09:16 Blood Pressure 132/92 H 03/15/25 09:16 Pulse Oximetry 100 03/15/25 09:16 Oxygen Delivery Room Air 03/15/25 09:16 Temperature 98.1 F 03/15/25 09:16 Pulse Rate 105 H 03/15/25 09:16 Respiratory Rate 16 03/15/25 09:16 Blood Pressure 132/92 H 03/15/25 09:16 Pulse Oximetry 100 03/15/25 09:16 Oxygen Delivery Room Air 03/15/25 09:16 Reviewed Medical Decision Making MDM Narrative Medical decision making narrative: Patient likely has otitis externa to her left ear. Advised patient continue cefdinir and start taking ofloxacin ear drops. Discussed physical exam findings. Advised supportive measures and signs/symptoms to go to the ER. Pt is appropriate for outpt treatment and f/u. Differential Diagnosis Differential Diagnosis: Otitis media, otitis externa, upper respiratory infection Vital Signs Vital Signs: Vital Signs Temperature 98.1 F 03/15/25 09:16 Pulse Rate 105 H 03/15/25 09:16 Respiratory Rate 16 03/15/25 09:16 Blood Pressure 132/92 H 03/15/25 09:16 Pulse Oximetry 100 03/15/25 09:16 Oxygen Delivery Room Air 03/15/25 09:16 Temperature 98.1 F 03/15/25 09:16 Pulse Rate 105 H 03/15/25 09:16 Respiratory Rate 16 03/15/25 09:16 Blood Pressure 132/92 H 03/15/25 09:16 Pulse Oximetry 100 03/15/25 09:16 Oxygen Delivery Room Air 03/15/25 09:16 Critical Care Time Critical Care Time Critical Care Time: No Discharge Plan Discharge Clinical Impression: Otitis externa Patient Disposition: Home Condition: Stable Instructions: Antibiotic Form Additional Instructions: Swimmer's ear is an infection in the outer ear canal, which runs from your eardrum to the outside of your head. It's often caused by water that remains in your ear, creating a moist environment that encourages the growth of bacteria. Take antibiotic drops as directed. Tylenol and ibuprofen every 6 to 8 hours as needed to reduce fever, pain Avoid water or anything into the ear for one week Follow up with your personal physician for further evaluation and treatment within 3-5days. If your symptoms persist, change or worsen significantly, go to the emergency department for further evaluation. Patient Language: Irish Prescriptions: New ofloxacin 0.3 % drops 10 drp LEFT EAR DAILY 7 Days Qty: 10 0RF No Action ropinirole 1 mg tablet 1 mg PO HS lamotrigine 100 mg tablet 100 mg PO DAILY escitalopram oxalate 10 mg tablet 15 mg PO HS Follow-up/Referrals: Martha,BAYRON Serrano [Primary Care Provider] - Time of Disposition: 10:02
== END 2025-03-15 10:16 | disposition home or self-care (01) ==
PROVIDERS: PCP Physician Assistant
DX: H60.92 Unspecified otitis externa, left ear (principal); K50.90 Crohn's disease, unspecified, without complications; F41.9 Anxiety disorder, unspecified; F32.A Depression, unspecified
CPT/HCPCS: 99213; G0463